=== PATIENT | male | born 1975 ===

== ENCOUNTER 2018-10-20 10:41 | Outpatient (CLI) | payer SELFPAY ==
--- NOTE | 2018-10-20 10:30 | DI.RAD_ITS ---
SYMPTOMS/DIAGNOSIS: PAIN LEFT ANKLE: There is soft tissue swelling. There is spurring at the distal tibia. There are plantar calcaneal spurs seen. No talar dome defect is identified. IMPRESSION: Mild to moderate degenerative changes.
== END 2018-10-20 11:01 ==
PROVIDERS: Visit Provider Orthopaedic Surgery
DX: M25.572 Pain in left ankle and joints of left foot (principal); M19.072 Primary osteoarthritis, left ankle and foot
CPT/HCPCS: 73610

== ENCOUNTER 2018-10-29 16:10 | Emergency (ER) | payer MEDICAID, SELFPAY ==
[2018-10-29 16:15] VITALS: BP 158/85; PULSE 68; RESP 16; TEMP 37.1; O2SAT 98
--- NOTE | 2018-10-29 16:32 | W.ED.GENAD ---
Discharge Plan Disposition Patient Disposition: HOME Condition: Stable Discharge Details Chief Complaint: Abd Prob Clinical Impression: Abdominal pain, left lower quadrant Primary Care Provider: None,None ED Provider: Chris Vail Home Meds and New Rx's Prescriptions: New amoxicillin-pot clavulanate [Augmentin] 875-125 mg tablet 1 tab PO BID Qty: 14 RF: 0 Discharge Instructions Additional Instructions: Based on your exam today there was no indication to require lab work or imaging at this time This pain is likely from muscle strain. The other potential cause of your pain is diverticulitis but given you have not had diarrhea and pain is improving do not start antibiotics. If you start to have diarrhea or worsening pain start the antibiotics follow up with your primary care provider as scheduled If you have severe worsening of pain or new symptoms such as persistent vomit, fevers or testicle pain return to the emergency department Medical Decision Making 42 yo male who denies chronic med problems though doesn't see a medical provider routinely comes in with cc of over a month of left lower abdominal pain. He states he used to drink heavily over 4 years ago and would have pain like this, and then stopped drinking until the holidays where he drank heavily and hasn't had a drink since .He has noted improving left lower abdominal pain and a month ago also had bloody stools which resolved. He states his pain is improving, and tried contacting [facility] and has an appt in early november but was told to come to the ED for an evaluation. On exam he has no tenderness at all on exam, no guarding or rebound and normal rectal exam and negative blood and neg heme. No testicle pain or swelling. could be intermittent inguinal hernia, less likely diverticulitis. His abdominal exam is reassuring for any acute surgical pathology and after discussion with him will defer imaging of the abd/pelvis. He has a f/u appt in November with a new pcp and will return if he worsens. I am going to prescribe abx and advised only to fill if he starts to have worsening pain or diarrhea to cover for diverticulits Differential Diagnosis diverticulitis, hernia, groin strain, muscle strain HPI General Mode of arrival: ambulatory. Date/Time Provider Initiated Documentation: 10/29/18 16:12. Limitations to Documentation: no limitations. Information obtained by: patient. History of Present Illness 42 year old M presents to the emergency department with the chief complaint of abdominal pain, described as mild, with intensity rated at 4. Quality is described as aching, and is localized to the abdomen. Patient reports no radiation. Patient started experiencing this month(s) (1) and it has been constant. No relieving factors improve symptom(s), No exacerbating factors reported . Patient did receive the following treatments prior to arrival, none Related Data Home Medications Medication Instructions Recorded Confirmed amoxicillin-pot clavulanate 1 tab PO BID #14 tab 10/29/18 [Augmentin] Previous Rx's Medication Instructions Recorded amoxicillin-pot clavulanate 1 tab PO BID #14 tab 10/29/18 [Augmentin] Allergies Allergy/AdvReac Type Severity Reaction Status Date / Time No Known Allergies Allergy Verified 10/29/18 16:19 General Stated Complaint: Abd Prob AYANA: 3 Review of Systems Review of Systems All systems reviewed & are unremarkable except as noted in HPI and below Constitutional Denies chills, Denies fever(s) and Denies weakness Cardiovascular Denies chest pain and Denies dyspnea Respiratory Denies cough and Denies dyspnea Gastrointestinal Denies nausea and Denies vomiting Genitourinary Denies dysuria Musculoskeletal Denies joint swelling Integumentary/Breasts Denies rash Neurologic Denies weakness Psychiatric Denies depression Endocrine Denies cold intolerance and Denies heat intolerance [facility] Social History Smoking and Tabacco status: Never Exam Const General: no acute distress Orientation: alert HENCA Head: normal to inspection Ears: external ears normal General nose exam: external nose normal Mouth: moist mucous membranes Eyes General: appearance normal, both eyes and all related structures Neck Neck: normal visual inspection Resp Effort & Inspection: normal respiratory effort and able to speak in complete sentences Cardio Rate: regular rate GI Inspection: normal to inspection and no abdominal wall ecchymosis Skin General skin exam: no rashes or lesions noted Neuro General: alert and oriented x3 Extrem General: normal to inspection Psych Mental Status: mental status grossly normal Course Vital Signs Temperature 37.1 C 10/29/18 16:15 Pulse 68 10/29/18 16:15 Respiratory Rate 16 10/29/18 16:15 Blood Pressure 158/85 H 10/29/18 16:15 Pulse Oximetry 98 10/29/18 16:15 Temperature 37.1 C 10/29/18 16:15 Temperature Source Skin 10/29/18 16:15 Pulse 68 10/29/18 16:15 Respiratory Rate 16 10/29/18 16:15 Respiratory Effort 10/29/18 16:19 Blood Pressure 158/85 H 10/29/18 16:15 Blood Pressure Position Sitting 10/29/18 16:15 Pulse Oximetry 98 10/29/18 16:15 Oxygen Delivery Method Room Air 10/29/18 16:15 Oxygen Flow Rate 0 10/29/18 16:15 Pain Level 4 10/29/18 16:15
== END 2018-10-29 16:38 | disposition home or self-care (01) ==
PROVIDERS: Emergency Provider Emergency Medicine
DX: R10.32 Left lower quadrant pain (principal)
CPT/HCPCS: 99283

== ENCOUNTER 2018-12-23 15:48 | Outpatient (REF) | payer SELFPAY ==
[2018-12-23 20:28] LABS: HCT 44.2 % (40.0-50.0); HGB 15.5 g/dL (13.5-17.5); Mean Corp. HGB Concentration 35.1 g/dL (32.0-36.0); Mean Corpuscular Hemoglobin 30.5 pg (27.0-33.0); Mean Corpuscular Volume 86.8 fL (80-95); Mean Platelet Volume 9.6 fL (8.0-11.0); Platelet Count 197 x1000/uL (130-400); RBC 5.09 m/cumm (4.50-6.00); RBC Distribution Width 13.7 % (11.8-14.1); White Blood Cell Count 6.74 k/cumm (4.4-10.8)
[2018-12-23 20:43] LABS: C-Reactive Protein 0.14 mg/dL (0.0-0.3)
[2018-12-23 21:30] LABS: ESR 7 MM/HR (0-15)
== END 2018-12-23 16:08 ==
LOC: NCHCN 15:48
PROVIDERS: PCP Specialist/Technologist Athletic Trainer; Visit Provider Specialist/Technologist Athletic Trainer
DX: M25.50 Pain in unspecified joint (principal); F41.8 Other specified anxiety disorders; R10.32 Left lower quadrant pain
CPT/HCPCS: 85027; 85652; 84443; 86140

== ENCOUNTER 2019-02-06 11:27 | Emergency (ER) | payer MEDICAID, SELFPAY ==
[2019-02-06 11:32] VITALS: BP 148/90; PULSE 71; RESP 16; TEMP 36.2; O2SAT 98
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
== END 2019-02-06 12:10 | disposition home or self-care (01) ==
PROVIDERS: Emergency Provider Student in an Organized Health Care Education/Training Program; PCP Specialist/Technologist Athletic Trainer
DX: S30.1XXA Contusion of abdominal wall, initial encounter (principal); V17.0XXA Pedal cycle driver injured in collision with fixed or stationary object in nontraffic accident, initial encounter; Z53.29 Procedure and treatment not carried out because of patient's decision for other reasons
CPT/HCPCS: 99282

== ENCOUNTER 2019-06-15 07:15 | Day surgery (SDC) | payer OTHER, MEDICAID, SELFPAY ==
--- NOTE | 2019-06-15 06:48 | HPE_ITS ---
Date of service: 06/15/19 Time of Service: 08:08 Assessment and Plan Assessment and plan (1) Bright red blood per rectum: Status: Acute Assessment and plan: A\\ Most likely due to hemorrhoids. If hemorrhoids found will go ahead with hemorrhoid banding (2) Left lower quadrant abdominal pain: Status: Acute Assessment and plan: P\\ Colonoscopy under sedation Risks, benefits and complications have been reviewed. Complications include but are not limited to bleeding, pain, perforation, missed small lesion/polyp, sore throat, aspiration and adverse reaction to the medications. Questions were entertained and answered to their satisfaction and they wished to proceed. No guarantees were given or implied. History of Present Illness Narrative: Mr. Maya is a 43 year old male with a PMHx significant for alco hol abuse and tobacco abuse. He has stopped smoking and had stopped drinking until about 1 year ago. He just quit drinking again 3 weeks ago. He is here today because of LLQ pain and intermittent rectal bleeding. States that the pain is deep. Sometimes the pain is relieved after he has a bout of bleeding. He has a history of hemorrhoids as well. He denies any N/V, melena, changes in bowel habits, unintentional weight loss. He thinks a maternal uncle had colon cancer but he isn't sure. He has not had a recent CT scan. His HGB/HCT are stable. Mr. Maya unfortunately has started drinking alcohol again. Had 5 Beers a few days ago Review of Systems Constitutional Constitutional: Denies fever(s) Cardiovascular Cardiovascular: Denies chest pain, Denies palpitations and Denies dyspnea Respiratory Respiratory: Denies cough and Denies dyspnea Endocrine Endocrine: Denies palpitations [facility] Medical History Dental abscess (Acute) ETOH abuse (Chronic) History of tobacco abuse (Acute) Marijuana use (Acute) Polyarthralgia (Acute) PTSD (post-traumatic stress disorder) (Acute) Suicidal ideation (Acute) Surgical History History of surgery (Acute) exc. cyst removed Family History Father Skin cancer Cardiomyopathy Maternal Uncle Colon cancer Mother Acid reflux disease with ulcer Sister Breast cancer Social History (Updated 06/15/19 @ 08:10 by Karoline Paez MD) Smoking/Tobacco Use Status: Former Tobacco Use Alcohol Intake: current Alcohol Intake frequency: 3 or more drinks per day Alcohol type: beer Details: Patient relapsed 5 years ago. Stopped again 3 weeks ago,relapsed 5 days ag Drug use: Daily Substance use type: marijuana Details: hx of etoh abuse pt reports today, 06/15/19 that he started drinking again, last time was 2 days ago, 5 beers. Medical marijuana uses edibles & smokes last time 2 days ago. 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 Do you feel safe at home: Yes Do you feel safe in your relationship?: Yes Meds Home Medications and Allergies Home Medications Medication Instructions Recorded Confirmed Type naproxen 500 mg PO BID PRN 02/06/19 06/15/19 History medical marijuana #1 ea 04/30/19 05/07/19 History Allergies Allergy/AdvReac Type Severity Reaction Status Date / Time No Known Allergies Allergy Verified 06/15/19 07:35 Exam Const General: cooperative and comfortable [facility] Head: normocephalic and atraumatic Resp Effort & Inspection: normal respiratory effort Auscultation: clear to auscultation bilaterally Cardio Rate: regular rate Rhythm: regular rhythm
--- NOTE | 2019-06-15 06:50 | W.PM.DSUDISC ---
Discharge Plan Disposition Patient Disposition: HOME Condition: Good Discharge Details Reason For Visit: Bright red blood per rectum and LLQ pain Attending Provider: Karoline Paez Primary Care Provider: James Rachel Home Meds and New Rx's Prescriptions: Continued (DME) medical marijuana Qty: 1 RF: 0 naproxen 500 mg Tablet 500 mg PO BID PRNRF: 0 Discharge Instructions Instructions: Colonoscopy (GEN), Diverticulosis (DC), Hemorrhoids (GEN), Rubber Band Ligation (DC) Additional Instructions: Findings: some mild patchy acute inflammation- I think this is just from the prep but I did biopsies just in case Internal hemorrhoids-I banded the 3 larger ones. You may need to have this done again Follow up: as needed if bleeding continues Try Cortizone cream for the remaining hemorrhoids. A prescription has been sent in Please call if you develop: fevers >101.5 Nausea or Vomiting Abdominal pain that is not transient DAY SURGERY UNIT POST ENDOSCOPY INSTRUCTIONS 1. Because there will be medication in your system for the next 24 hours, you may feel a little sleepy. Your coordination will be affected. Therefore: a. Do not drive or operate dangerous equipment for 24 hours. b. Do not drink alcohol beverages for 24 hours (not even beer). c. Plan to go home and rest for the day. 2. Generally there are no restrictions on your activity after a day or so has gone by, but you may feel a bit fatigued for a few days. 3 After you arrive home you may have a light meal and return to a normal diet as you can tolerate it without feeling sick to your stomach. 4. After surgery, you may feel pain or discomfort. This should be only transient, but if it persists please contact your doctor. 5. If there are any questions regarding the findings of your procedure, please feel free to contact your doctor. 6. If you are unable to contact your doctor with a problem, contact the hospital at [phone]. 7. Continue all your regular medications unless directed otherwise. I understand the above instructions and have no questions. Signature of Patient or Responsible Adult Escort Date/Time Name of Responsible Adult Escort Signature of Nurse Date/Time Activity:: Activity as Tolerated Diet:: High Fiber Discharge Orders Discharge Orders: Discharge Order (Routine); Ordered 06/15/19 Ordered By: Karoline Paez DS: Diagnosis Discharge Diagnosis (1) Internal bleeding hemorrhoids: Status: Acute (2) Diverticulosis: Status: Acute (3) S/P colonoscopy: Status: Acute (4) S/P hemorrhoidectomy: Status: Acute
--- NOTE | 2019-06-15 07:00 | W.COLOREPORT ---
Date of service: 06/15/19 Time of Service: 08:23 Colonoscopy Report Date of procedure: 06/15/19 Pre-op diagnosis general: Intermittent rectal bleeding and LLQ pain Post-op diagnosis procedure note: other (Mild acute inflammation, Bleeding internal hemorrhoids and mild diverticulosis) Procedure: Colonoscopy with bx and internal hemorrhoid banding Surgeon: Karoline Paez Anesthesia proc note operative: other (General/ ASA 2/Blair Hurst, ANDRY) Estimated blood loss (mL): 5 Pathology: other (Biopsies of sigmoid and rectum) Complications: None Disposition: same day Indications: Mr. Maya is a pleasant 43 year old male seen in the office with intermittent bright red blood per rectum as well as some left lower quadrant pain. Risks, benefits and complications of a colonoscopy with possible hemorrhoid banding were reviewed with him and he wished to proceed. No guarantees were given or implied. Prep: Miralax/Dulcolax Procedure Start Time: 08:23 Procedure End Time: 08:49 Retraction Time: 20 minutes Findings: Grade 1 and 2 internal hemorrhoids Mild Diverticulosis Mild patchy acute inflammation Procedure Description: After informed consent was obtained the patient was taken to the procedure room and placed in a left decubitous position. Monitors were applied and a time out was done. The patients name, date of , procedure, allergies to medications and metal in their body was reviewed. The patient was then sedated. Once sedated and comfortable a rectal exam was done. External exam was normal. Internal exam revealed a normal sphincter tone and no palpable masses. The prostate could not be felt. The scope was then introduced and retro-flexed. Grade 1 and 2 internal hemorrhoids were identified. No masses or polyps noted on retro-flexion. The scope was then advanced to the cecum without difficulty. The TI and appendiceal orifice were identified. The prep was adequate. The scope was advanced into the terminal ileum. No inflammation was noted. Random biopsies were done. The scope was then slowly retracted over 20 minutes back into the rectum. There were no polyps noted. There was mild diverticulosis in the sigmoid colon. The scope was removed. Anoscopy was done and 3 internal hemorrhoids were banded. The patient was woken up and taken back to Same day surgery in stable condition. The patient tolerated the procedure well and there were no immediate complications. Follow up: The patient should follow up in 10 years unless they develop changes in bowel habits or other new gastrointestinal complaints. Follow up as needed for continued rectal bleeding as he may need to have more hemorrhoids banded. Will try a high fiber diet and some rectal cortizone.
[2019-06-15 07:38] VITALS: BP 144/86; PULSE 89; RESP 18; TEMP 36.5; O2SAT 97
[2019-06-15] MEDS: Lactated Ringers 1,000 ML 80 ML IV (07:44)
--- NOTE | 2019-06-15 08:34 | BOWEL_PTH ---
PATIENT: Sancho Maya LOC: [facility] U#:[id number] AGE/SX: 43/M ROOM: RE06/15/[address]: Karoline Paez MD : 1975 BED: DIS: 06/15/2019 SPEC #: [id number] RECD: 06/15/19 12:42 STATUS: KEVIN REMayela #: [id number] DANIELE: 06/15/19 08:[address]: Karoline Paez DEPT: Surgical Specimen RECD BY: Nadia Orellana ENTERED: 06/15/19 12:44 SP TYPE: Bowel OTHR DR: James Rachel Tissues: 1 - BIOPSY BOWEL 2 - BIOPSY BOWEL 3 - BIOPSY BOWEL Procedures: GROSS AND MICRO LEVEL 4 Comments: [id number]
[2019-06-15 09:20] VITALS: BP 171/111; PULSE 79; RESP 18; TEMP 36.3; O2SAT 97
[2019-06-15 09:43] VITALS: BP 171/103; PULSE 79; RESP 18; TEMP 36.3; O2SAT 97
== END 2019-06-15 10:03 | disposition home or self-care (01) ==
LOC: SUR 07:15
PROVIDERS: PCP Specialist/Technologist Athletic Trainer; Visit Provider Surgery
PROC: 0DJD8ZZ Inspection of Lower Intestinal Tract, Via Natural or Artificial Opening Endoscopic (ICD-10-PCS; CPT 45378; principal; 2019-06-15 08:30)
DX: K62.5 Hemorrhage of anus and rectum (principal); R10.32 Left lower quadrant pain; K64.0 First degree hemorrhoids; K64.1 Second degree hemorrhoids; K57.30 Diverticulosis of large intestine without perforation or abscess without bleeding
CPT/HCPCS: 45380; 46221; 88305; NC; J2250; J3010

== ENCOUNTER 2020-03-03 14:35 | Outpatient (REF) | payer MEDICAID, SELFPAY ==
[2020-03-03 19:58] LABS: Uric Acid 6.7 mg/dL (3.5-7.2)
== END 2020-03-03 14:55 ==
LOC: NCHCN 14:35
PROVIDERS: PCP Specialist/Technologist Athletic Trainer; Visit Provider Nurse Practitioner Family
DX: M79.671 Pain in right foot
CPT/HCPCS: 84550

== ENCOUNTER 2020-03-14 01:32 | Outpatient (CLI) | payer MEDICAID, SELFPAY ==
--- NOTE | 2020-03-14 | DI.RAD_ITS ---
EXAM: XR TOE RT GREAT CLINICAL HISTORY: FOOT JOINT PAIN, M79.671, RT GREAT TOE PAIN SWELLING X 2 WKS, NO KNOWN INJ. TECHNIQUE: 2D digital imaging was performed. COMPARISON: No exams were available for comparison FINDINGS: BONES: No acute fracture is present. No bony destructive lesion is seen. JOINTS: No dislocation present. SOFT TISSUE: Normal. IMPRESSION: No evidence of acute fracture, dislocation, or subluxation. DATA REPOSITORY: RADIATION DOSE DELIVERED:
== END 2020-03-14 01:52 ==
PROVIDERS: PCP Nurse Practitioner Family; Visit Provider Nurse Practitioner Family
DX: M79.671 Pain in right foot (principal); M79.674 Pain in right toe(s)
CPT/HCPCS: 73660

== ENCOUNTER 2020-03-20 14:38 | Outpatient (REF) | payer MEDICAID, SELFPAY ==
[2020-03-20 19:52] LABS: Hemoglobin A1C 5.4 % (3.8-5.6)
[2020-03-20 19:53] LABS: ALT 39 U/L (16-63); AST 21 U/L (15-37); Albumin 4.1 g/dL (3.4-5.0); Alkaline Phosphatase 77 U/L (46-116); Anion Gap 10.6 mmol/L (3-11); BUN 9 mg/dL (7-18); Bilirubin, Total 0.4 mg/dL (0.2-1.0); CO2 24.4 mmol/L (21.0-32.0); CREATININE 0.99 mg/dL (0.70-1.30); Calcium 9.4 mg/dL (8.5-10.1); Calculated LDL 137 mg/dL (<100); Chloride 105 mmol/L (98-107); Cholesterol 199 mg/dL (<200); Glucose 85 mg/dL (74-106); HDL Cholesterol 34 mg/dL (40-60); Sodium 140 mmol/L (136-145); Total Protein 7.2 g/dL (6.4-8.2); Triglyceride 141 mg/dL (<150)
== END 2020-03-20 14:58 ==
LOC: NCHCN 14:38
PROVIDERS: PCP Nurse Practitioner Family; Visit Provider Nurse Practitioner Family
DX: Z00.00 Encounter for general adult medical examination without abnormal findings (principal); Z13.220 Encounter for screening for lipoid disorders; Z13.228 Encounter for screening for other metabolic disorders; Z13.1 Encounter for screening for diabetes mellitus
CPT/HCPCS: 80053; 80061; 83036

== ENCOUNTER 2020-03-21 15:28 | Outpatient (CLI) | payer OTHER, SELFPAY ==
--- NOTE | 2020-03-21 08:33 | DI.RAD_ITS ---
EXAM: XR ANKLE LT COMPLETE CLINICAL HISTORY: left ankle pain TECHNIQUE: 2D digital imaging was performed. COMPARISON: CR XR ANKLE LT COMPLETE from 10/20/2018 FINDINGS: There is mild spurring of the at the malleoli. There are few tiny bony densities near the malleoli. There is spurring at the distal tibia anterior greater anteriorly and at the anterior talus. There is mild tibiotalar joint space narrowing. No talar dome defect seen. No ankle mortise widening is seen. There is a heel spur. IMPRESSION: Degenerative changes and plantar calcaneal spur.
== END 2020-03-21 15:48 ==
PROVIDERS: PCP Nurse Practitioner Family; Visit Provider Student in an Organized Health Care Education/Training Program
DX: M25.572 Pain in left ankle and joints of left foot (principal); M19.072 Primary osteoarthritis, left ankle and foot; M77.32 Calcaneal spur, left foot
CPT/HCPCS: 73610

== ENCOUNTER 2020-04-12 00:36 | Outpatient (CLI) | payer MEDICAID, SELFPAY ==
--- NOTE | 2020-04-12 07:00 | DI.MRI_ITS ---
EXAM: MR LOWER JOINT LT WO CLINICAL HISTORY: Evaluate anterior ankle posttraumatic mobile mass,ANT ANKLE IMPINGEMENT,. TECHNIQUE: Multiplanar multisequence MRI was performed. COMPARISON: CR XR ANKLE LT COMPLETE from 03/21/2020 FINDINGS: There is no evidence of fracture or bone contusion. A plantar calcaneal spur is seen. There is no evidence of plantar fasciitis. There is fluid seen around the flexor hallucis longus and flexor digi torum tendons but no intrinsic tendon abnormality. The fluid extends along the tendons in the planta r aspect of the foot. There is also fluid seen posterior to the posterior talocalcaneal joint and so me thickening of the posterior talofibular ligament. Small amount of fluid is also seen at the dista l tibial fibular joint. IMPRESSION: Large synovial cysts or a ganglia seen around the flexor digitorum and flexor hallucis longus tendon s. No mass or intrinsic tendon abnormality is seen. DATA REPOSITORY:
== END 2020-04-12 00:56 ==
PROVIDERS: PCP Nurse Practitioner Family; Visit Provider Student in an Organized Health Care Education/Training Program
DX: M25.872 Other specified joint disorders, left ankle and foot
CPT/HCPCS: 73721

== ENCOUNTER 2020-05-07 13:51 | Emergency (ER) | payer MEDICAID, SELFPAY ==
[2020-05-07 13:56] VITALS: BP 143/93; PULSE 128; RESP 20; TEMP 37.3; O2SAT 98
--- NOTE | 2020-05-07 14:00 | DI.RAD_ITS ---
EXAM: XR ANKLE RT COMPLETE CLINICAL HISTORY: Right lateral ankle pain TECHNIQUE: COMPARISON: CR XR ANKLE LT COMPLETE from 03/21/2020 FINDINGS: Three views were obtained. There is marked soft tissue swelling of the ankle. There are moderate to severe degenerative changes involving the joints of the ankle. There are osseous bodies at multiple sites including adjacent to both malleoli which may represent old injuries or accessory ossicles. T here is no evidence of acute fracture or dislocation. IMPRESSION: No evidence of acute fracture or dislocation. RADIATION DOSE DELIVERED: Total DLP
--- NOTE | 2020-05-07 14:01 | W.ED.GENAD ---
Discharge Plan Disposition Patient Disposition: HOME Condition: Stable Discharge Details Chief Complaint: Orthopedic Clinical Impression: Right ankle sprain Primary Care Provider: Marli Stahl ED Provider: Lamar Jon Home Meds and New Rx's Prescriptions: No Action (DME) medical marijuana Qty: 1 RF: 0 hydrocortisone 2.5 % cream with perineal applicator 1 applic NH TID 7 Days Qty: 30 RF: 1 acetaminophen 325 mg Tablet 650 mg PO PRN PRNRF: 0 Discharge Instructions Instructions: Ankle Sprain (ED) Additional Instructions: x-ray shows evidence of degenerative changes and possible old injuries. There is no evidence of acute fracture or dislocation. Wear the splint that you have as needed for comfort take medications as directed. Follow up with primary care provider in 3-5 days. Return to ED sooner if any worsening or concerns. Increase oral fluids. Please take Tylenol or Ibuprofen with food every 4-6 hours as needed for pain and swelling. You may follow-up with orthopedics in 1 to 2 weeks if continued pain. Referrals: Edwin Westfall MD [ [facility] STAFF PHYSICIAN] - Medical Decision Making 44-year-old male presents to the ER with chief complaint of right ankle pain which began on Friday night. Patient has ongoing problems with his left ankle and has been using his right ankle more. He reports lateral malleolus tenderness which is gotten worse radiates into his posterior ankle. Denies any acute injury. No significant deformity, swelling or erythema. He has been seeing Dr. joseph with Ortho for his left ankle for Workmen's Comp. issue and received steroid injections approximately 2 weeks ago to his left ankle. Patient reports difficulty ambulating on right foot due to pain. COMPARISON: CR XR ANKLE LT COMPLETE from 03/21/2020 FINDINGS: Three views were obtained. There is marked soft tissue swelling of the ankle. There are moderate to severe degenerative changes involving the joints of the ankle. There are osseous bodies at multiple sites including adjacent to both malleoli which may represent old injuries or accessory ossicles. There is no evidence of acute fracture or dislocation. IMPRESSION: No evidence of acute fracture or dislocation. Discussed findings of x-ray with patient, verbalized understanding. Patient has presented with his own lace up ankle splint. He also indicates that he has his own walking boot and other Ortho devices at home. Discussed home care verbalized understanding. Referral placed for orthopedic follow-up at patient's request. Placed on care management list. This text was generated using [employer] dictation system, please disregard any oddities of phrase or misspellings. HPI General Mode of arrival: ambulatory (On a ortho rolling scooter). Date/Time Provider Initiated Documentation: 05/07/20 13:56. Limitations to Documentation: no limitations. Information obtained by: patient. HPI Narrative: 44-year-old male presents to the ER with chief complaint of right ankle pain which began on Friday night. Patient has ongoing problems with his left ankle and has been using his right ankle more. He reports lateral malleolus tenderness which is gotten worse radiates into his posterior ankle. Denies any acute injury. No significant deformity, swelling or erythema. He has been seeing Dr. joseph with Ortho for his left ankle for Workmen's Comp. issue and received steroid injections approximately 2 weeks ago to his left ankle. Patient reports difficulty ambulating on right foot due to pain. Related Data Home Medications Medication Instructions Recorded Confirmed medical marijuana #1 ea 04/30/19 05/07/20 hydrocortisone 1 applic NH TID 7 Days #30 gm 06/15/19 05/07/20 acetaminophen 650 mg PO PRN PRN 05/07/20 05/07/20 Previous Rx's Medication Instructions Recorded hydrocortisone 1 applic NH TID 7 Days #30 gm 06/15/19 Allergies Allergy/AdvReac Type Severity Reaction Status Date / Time No Known Allergies Allergy Verified 05/07/20 14:00 General Stated Complaint: Orthopedic AYANA: 4 Review of Systems Narrative: Constitutional: Negative for weight loss, alert and oriented, well groomed, normal body habitus, appears comfortable. HEENT: Denies trauma, headaches, blurry vision, nasal discharge, sore throat, trouble swallowing. Chest: Denies chest pain, palpitations, irregular rhythm, hypertension. Respiratory: Denies Shortness of breath, cough, hemoptysis. GI: Denies abdominal pain, nausea, vomiting, diarrhea, constipation. : Denies dysuria, hematuria, flank pain, rectal bleeding. Neuro: Denies dizziness, blurry vision, weakness, syncope, headache or facial numbness. Hematologic: Denies easy bruising, intolerance to heat or cold, hair loss. [facility] Medical History Degenerative joint disease of left ankle (Acute) Dental abscess (Acute) Diverticulosis (Acute) ETOH abuse (Chronic) History of tobacco abuse (Acute) Impingement of left ankle joint (Acute) Internal bleeding hemorrhoids (Acute) Left ankle injury (Acute 01/19/20) Marijuana use (Acute) Polyarthralgia (Acute) PTSD (post-traumatic stress disorder) (Acute) Suicidal ideation (Acute) Surgical History History of surgery (Acute) exc. cyst removed S/P colonoscopy (Inactive ~06/15/19) S/P hemorrhoidectomy (Resolved ~06/15/19) banding x3 Family History Father Skin cancer Cardiomyopathy Maternal Uncle Colon cancer Mother Acid reflux disease with ulcer Sister Breast cancer Social History Smoking/Tobacco Use Status: Former Tobacco Use Alcohol Intake: current Alcohol Intake frequency: 3 or more drinks per day Alcohol type: beer Details: Patient relapsed 5 years ago. Stopped again 3 weeks ago,relapsed 5 days ag Drug use: Daily Substance use type: marijuana Details: hx of etoh abuse pt reports today, 06/15/19 that he started drinking again, last time was 2 days ago, 5 beers. Medical marijuana uses edibles & smokes last time 2 days ago. 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 Appears stated age. Normal body habitus. Head: Normocephalic, no trauma. Eyes: Pupils PERRLA, Red reflex noted, EOM's intact. Eyelids symmetrical without lesions, discharge, or swelling. ENT: Bilateral TM's WNL, External ear normal to inspection, no mastoid TTP, swelling, or erythema, Nasal turbinates WNL, no nasal discharge. Normal dentition, Posterior pharynx WNL, no exudate. Chest: RRR, Normal S1, S2, distal pulses intact. Resp: Lungs clear to auscultation bilaterally, no wheezes, rales, or rhonchi. Musculoskeletal: Normal gait, does have a bony deformity noted to his lateral malleolus which appears chronic. See diagram below. Skin: No suspicious rashes or lesions. Capillary refill less than 2 sec. Neurologic: Cranial nerves II-XII intact. Alert and oriented x 3. DTR's intact. Hematologic/Lymphatic: No ecchymosis, no lymphadenopathy. Extrem Ankle/foot/toe images: 1. Tenderness to palpation. Course Vital Signs Vital signs: Vital Signs Temperature 37.3 C 05/07/20 13:56 Pulse 128 H 05/07/20 13:56 Respiratory Rate 20 05/07/20 13:56 Blood Pressure 143/93 H 05/07/20 13:56 Pulse Oximetry 98 05/07/20 13:56 Temperature 37.3 C 05/07/20 13:56 Temperature Source Temporal Artery Scan 05/07/20 13:56 Pulse 128 H 05/07/20 13:56 Respiratory Rate 20 05/07/20 13:56 Blood Pressure 143/93 H 05/07/20 13:56 Pulse Oximetry 98 05/07/20 13:56 Oxygen Delivery Method Room Air 05/07/20 13:56 Oxygen Flow Rate 0 05/07/20 13:56 Pain Level 9 05/07/20 13:56
[2020-05-07 14:44] VITALS: PULSE 100; TEMP 36.8
[2020-05-07] MEDS: Ibuprofen 600 MG TAB PO (14:44)
[2020-05-07 15:18] VITALS: BP 120/79; PULSE 90; RESP 20; O2SAT 97
[2020-05-07] MEDS: traMADol 50 MG TAB PO (15:25)
== END 2020-05-07 15:40 | disposition home or self-care (01) ==
PROVIDERS: Emergency Provider Registered Nurse Emergency; PCP Nurse Practitioner Family
DX: S93.401A Sprain of unspecified ligament of right ankle, initial encounter (principal)
CPT/HCPCS: 99283; 73610

== ENCOUNTER 2020-08-01 09:21 | Outpatient (CLI) | payer MEDICAID, SELFPAY ==
--- NOTE | 2020-08-01 | DI.US_ITS ---
EXAM: US LOWER EXTREMITY VENOUS LT CLINICAL HISTORY: LT LEG EDEMA, R60.0, ? DVT TECHNIQUE: Left lower extremity venous ultrasound performed using grayscale, color-flow, and spectra l Doppler analysis. COMPARISON: No exams were available for comparison FINDINGS: The left common femoral demonstrates normal compressibility, augmentation, and color Doppler. There is occlusive hypoechoic thrombus seen extending from the distal left femoral vein through the poplite al vein. It measures almost 20 cm in length. Anterior tibial veins in the lower extremity also show thrombus. There is also thrombus in the superficial veins in the delete the left lower extremity co nsistent with thrombophlebitis. The saphenofemoral junction is unremarkable. There is no evidence o f a Marquez cyst. The soft tissues are unremarkable. IMPRESSION: 1. DVT in the left lower extremity extending from the distal left femoral vein through the popliteal vein. It measures almost 20 cm in length. 2. Superficial thrombophlebitis. DATA REPOSITORY:
== END 2020-08-01 09:41 ==
PROVIDERS: PCP Nurse Practitioner Family; Visit Provider Nurse Practitioner Family
DX: I82.412 Acute embolism and thrombosis of left femoral vein (principal); I82.4Z2 Acute embolism and thrombosis of unspecified deep veins of left distal lower extremity; I80.02 Phlebitis and thrombophlebitis of superficial vessels of left lower extremity
CPT/HCPCS: 93971

== ENCOUNTER 2020-11-10 15:52 | Outpatient (REF) | payer MEDICAID, SELFPAY ==
[2020-11-10 15:02] LABS: HCT 44.7 % (40.0-50.0); HGB 15.1 g/dL (13.5-17.5); MCH 29.4 pg (27.0-33.0); MCHC 33.8 % (32.0-36.0); MCV 87.1 fL (80-95); MPV 9.4 fL (8.0-11.0); Platelet Count 223 10^3/uL (130-400); RBC 5.13 10^6/uL (4.36-5.78); RDW 12.8 % (11.8-14.1); RDW-SD 41.1 fL; WBC 8.49 10^3/uL (4.4-10.8)
[2020-11-10 15:21] LABS: Uric Acid 7.8 mg/dL (3.5-7.2)
== END 2020-11-10 15:53 | disposition home or self-care (01) ==
LOC: NCHCN 15:52
PROVIDERS: PCP Nurse Practitioner Family; Visit Provider Nurse Practitioner Family
DX: M79.671 Pain in right foot (principal); K62.5 Hemorrhage of anus and rectum; I82.492 Acute embolism and thrombosis of other specified deep vein of left lower extremity
CPT/HCPCS: 85027; 84550

== ENCOUNTER 2020-11-13 02:45 | Outpatient (CLI) | payer MEDICAID, SELFPAY ==
--- NOTE | 2020-11-13 | DI.US_ITS ---
EXAM: US LOWER EXTREMITY VENOUS LT CLINICAL HISTORY: F/U ACUTE DVT,I82.409, BEEN ON XALETO TECHNIQUE: Left lower extremity venous ultrasound performed using grayscale, color-flow, and spectra l Doppler analysis. COMPARISON: US US LOWER EXTREMITY VENOUS LT from 08/01/2020 FINDINGS: The left common femoral, femoral and posterior tibialis veins demonstrate normal compressibility, aug mentation, and color Doppler. There is hypoechoic material still present within the distal left femor al vein and the popliteal vein. There has been interval resolution of the thrombus distal to the pop liteal vein. The saphenofemoral junction is unremarkable. There is no evidence of a Marquez cyst. Th e soft tissues are unremarkable. IMPRESSION: Persistent occult material seen in the distal femoral vein and popliteal vein. This may represent re sidual thrombus or post thrombotic change/scarring. It has shown interval decrease in length compare d to the prior examination. DATA REPOSITORY:
== END 2020-11-13 03:05 ==
PROVIDERS: PCP Nurse Practitioner Family; Visit Provider Nurse Practitioner Family
DX: I82.412 Acute embolism and thrombosis of left femoral vein (principal); I82.432 Acute embolism and thrombosis of left popliteal vein
CPT/HCPCS: 93971

== ENCOUNTER 2020-12-22 03:04 | Outpatient (CLI) | payer MEDICAID, SELFPAY ==
[2020-12-22 09:55] LABS: D-Dimer 278 ng/mlFEU (<500)
[2020-12-25 15:37] LABS: Dilute Russell Viper Venom 48.3 secs (31.9-47.0); LA Cascade Summary (See Note); Silica Clotting Time 48.7 secs (30.2-48.4)
[2020-12-25 16:02] LABS: Silica Clot Confirm 42.3 (27.2-43.3); Silica Clot TR Ratio 1.22 (<=1.16)
[2020-12-25 16:03] LABS: Thrombin Time 13.1 secs (10.3-16.9)
[2020-12-25 16:04] LABS: SCT Mixing Control 39.8 secs
[2020-12-25 16:05] LABS: SCT Mixing Study 42.8 secs (30.2-48.4)
[2020-12-25 16:06] LABS: LA Confirm 32.4 secs (27.4-34.7); LA Ratio 1.17 (<=1.16)
[2020-12-25 20:30] LABS: Phospholipid Ab, IgG <9.4 GPL; Phospholipid Ab, IgM 13.1 MPL
[2020-12-26 13:04] LABS: Beta 2 GP1 Ab IgG <9.4 U/mL; Beta 2 GP1 Ab IgM <9.4 U/mL
[2020-12-27 10:16] LABS: Protein S, Functional >150 % (73-156)
== END 2020-12-22 03:05 | disposition home or self-care (01) ==
LOC: LBO 03:04
PROVIDERS: PCP Nurse Practitioner Family; Visit Provider Nurse Practitioner Family
DX: I82.492 Acute embolism and thrombosis of other specified deep vein of left lower extremity
CPT/HCPCS: 36415; 85306; 85670; 85732; 86146; 86147; 87116; 85379; 85613

== ENCOUNTER 2021-03-01 08:43 | Inpatient (IN) | payer MEDICAID, SELFPAY ==
[2021-03-01] VITALS (19 sets, daily range): BP systolic 127–148; BP diastolic 84–105; PULSE 90–150; RESP 17–28; TEMP 36.8–37.5; O2SAT 95–98
--- NOTE | 2021-03-01 08:30 | RT.EKG_ITS ---
APPROVED REPORT Exam: Resting ECG Reason for Exam: CHEST PAIN Patient Location: E HR:90 bpm ECG Measurements Heart Rate 90 AXIS AZ 148 P 30 QRSd 86 QRS 246 QT 359 T 37 QTc 441 Conclusion Sinus rhythm...normal P axis, V-rate 60- 99 Probable left atrial enlargement...P >50mS, <-0.10mV V1 LAD, consider left anterior fascicular block...axis(240,-40), S>R II III aVF Consider left ventricular hypertrophy...(R aVL+S V3) >2.80mV
--- NOTE | 2021-03-01 09:15 | DI.CT_ITS ---
Exam(s) CT CHEST PE CTA EXAM: CT CHEST PE CTA CLINICAL HISTORY: hx of PE, off anticoags for 3 mo. TECHNIQUE: Imaging Protocol: CT angiography of the chest was performed using pulmonary embolus jesus col. Multi planar reconstructions were performed. CONTRAST MATERIAL: Intravenous: Omnipaque 350 Contrast volume: 82 cc Slightly less than optimal bolus timing for opacification of pulmonary arterial tree. COMPARISON: No exams were available for comparison FINDINGS: CHEST: PULMONARY ARTERIES: There are no obvious intraluminal filling defects to suggest acute pulmonary embo li. LUNGS: There are no infiltrates nor evidence of pulmonary infarction.. There are no pleural effusions . MEDIASTINUM: There is no hilar nor mediastinal adenopathy. Visualized thyroid unremarkable. CARDIAC: Heart size is normal. There is no pericardial effusion.Caliber of the thoracic aorta is wit hin normal limits. There is no significant shift of the interventricular septum. PARTIALLY VISUALIZED UPPERMOST ABDOMEN: Hepatic steatosis. No adrenal masses. OSSEOUS: No significant osseous lesions.. IMPRESSION: 1. No evidence of acute pulmonary emboli. No evidence of pulmonary infarction.No pleural effusions. 2. Normal heart size. No pericardial effusion.. No evidence of aortic dissection. 3. Hepatic steatosis noted. RADIATION DOSE DELIVERED: 579.54mGy.cm Total DLP DATA REPOSITORY: All CT scans at this facility are submitted to the National Radiology Data Registry (NRDR) Dose Index Registry (DIR) with the [employer] (ACR). RADIATION OPTIMIZATION: All CT scans at this facility use at least one of these dose optimization te chniques: automated exposure control; mA and/or kV adjustment per patient size (includes targeted exa ms where dose is matched to clinical indication); or iterative reconstruction.
--- NOTE | 2021-03-01 09:23 | ED.GENADUL_ITS ---
Discharge Plan Disposition Patient Disposition: [facility] INPATIENT Condition: Improving Discharge Details Clinical Impression: Alcohol withdrawal, Elevated troponin Admit Date/Time: 03/01/21 11:49 Admit Provider: Sanjeev Luque Attending Provider: Sanjeev Luque Primary Care Provider: Marli Stahl ED Provider: Nadia Hung Discharge Data Discharge Date/Time-TO BE ENTERED AT DEPARTURE: 03/01/21 13:51 Medical Decision Making <TAVO Murillo - Last Filed: 03/01/21 13:28> Patient is alert, oriented, of decisional capacity, quite pleasant in demeanor, initially with a CIWA AR of 11 and a alcohol withdrawal severity score of four, patient was initiated on Ativan secondary to respiratory complaints for safety He felt symptomatically improved after 1 mg of IV Ativan and was not hypoxic Initially concern for pulmonary embolism with elevated troponin of 0.09 with BNP of 1800, CT a chest does not show evidence of pulmonary embolism Case was discussed with Dr. Levin, radiology Patient agreeable to admission at this time, IV Lasix initiated, 20 mg with patient is diuretic na?ve He was given four baby aspirin, MAGGIE will be monitored, Covid swab pending although patient is asymptomatic from the standpoint Mildly hypokalemic but no EKG findings consistent with this, supplemented with 40 mEq of oral potassium Case discussed with Dr. Snell, admitting hospitalist she is willing to admit Patient is agreeable to admission at this time Blood pressure 120/87 at time of admission Differential Diagnosis Differential Diagnosis: CHF, alcohol withdrawal, non-ST elevation NE, pulmonary embolism Medical Records Medical records reviewed: Yes I reviewed the patient's medical records. Lab Data Lab results reviewed: Yes I reviewed the patient's lab results. <Darrian Mccollum MD - Last Filed: 03/09/21 23:13> Patient seen, examined, and discussed with TAVO Hung. EKG was reviewed and interpreted by me: Please see report, sinus rhythm 97 bpm, posterior axis, LVH, no STEMI. I agree with treatment plan as discussed/documented. Patient to be admitted to the hospitalist service for alcohol withdrawal and troponin elevated in the indeterminate range. Lab Data Lab results reviewed: Yes I reviewed the patient's lab results. Labs: Laboratory Tests Range/Units 03/01/21 03/01/21 03/01/21 09:00 09:00 09:19 WBC (4.4-10.8) 10^3/uL 9.14 RBC (4.36-5.78) 10^6/uL 5.94 H Hgb (13.5-17.5) g/dL 18.4 H Hct (40.0-50.0) % 51.4 H MCV (80-95) fL 86.5 MCH (27.0-33.0) pg 31.0 MCHC (32.0-36.0) % 35.8 RDW (11.8-14.1) % 12.5 Plt Count (130-400) 10^3/uL 195 MPV (8.0-11.0) fL 8.8 Immature Gran % 0.5 Neutrophils % 73.2 Lymphocytes % 14.7 Monocytes % 8.2 Eosinophils % 3.0 Basophils % 0.4 Nucleated RBC % % 0 Absolute Neutrophils (1.2-6.7) 10^3/uL 6.69 Absolute Lymphocytes (1.2-3.4) 10^3/uL 1.34 Absolute Monocytes (0.1-0.8) 10^3/uL 0.75 Absolute Eosinophils (0.0-0.7) 10^3/uL 0.27 Absolute Basophils (0.0-0.2) 10^3/uL 0.04 Sodium (136-145) mmol/L 140 Potassium (3.5-5.1) mmol/L 3.3 L Chloride (98-107) mmol/L 100 Carbon Dioxide (21.0-32.0) mmol/L 27.2 Anion Gap (3-11) mmol/L 12.8 H BUN (7-18) mg/dL 13 Creatinine (0.70-1.30) mg/dL 1.2 Estimated GFR/1.73 m2 (mL/min/1.73m2) >= 60.00 Glucose (74-106) mg/dL 122 H Calcium (8.5-10.1) mg/dL 9.1 Magnesium (1.8-2.4) mg/dL 2.0 Total Bilirubin (0.2-1.0) mg/dL 1.2 H AST (15-37) U/L 41 H ALT (16-63) U/L 47 Alkaline Phosphatase (46-116) U/L 89 Troponin I (<0.06) ng/mL 0.09 H* NT-Pro-B Natriuret Pep (<300) pg/mL 1885 H Total Protein (6.4-8.2) g/dL 8.6 H Albumin (3.4-5.0) g/dL 4.1 TSH (0.36-3.74) uIU/mL 2.01 Cancelled Ethyl Alcohol (<3) mg/dL < 3.0 COVID-19 Source Range/Units 03/01/21 03/01/21 03/01/21 09:20 10:47 11:52 WBC (4.4-10.8) 10^3/uL RBC (4.36-5.78) 10^6/uL Hgb (13.5-17.5) g/dL Hct (40.0-50.0) % MCV (80-95) fL MCH (27.0-33.0) pg MCHC (32.0-36.0) % RDW (11.8-14.1) % Plt Count (130-400) 10^3/uL MPV (8.0-11.0) fL Immature Gran % Neutrophils % Lymphocytes % Monocytes % Eosinophils % Basophils % Nucleated RBC % % Absolute Neutrophils (1.2-6.7) 10^3/uL Absolute Lymphocytes (1.2-3.4) 10^3/uL Absolute Monocytes (0.1-0.8) 10^3/uL Absolute Eosinophils (0.0-0.7) 10^3/uL Absolute Basophils (0.0-0.2) 10^3/uL Sodium (136-145) mmol/L Potassium (3.5-5.1) mmol/L Chloride (98-107) mmol/L Carbon Dioxide (21.0-32.0) mmol/L Anion Gap (3-11) mmol/L BUN (7-18) mg/dL Creatinine (0.70-1.30) mg/dL Estimated GFR/1.73 m2 (mL/min/1.73m2) Glucose (74-106) mg/dL Calcium (8.5-10.1) mg/dL Magnesium (1.8-2.4) mg/dL Total Bilirubin (0.2-1.0) mg/dL AST (15-37) U/L ALT (16-63) U/L Alkaline Phosphatase (46-116) U/L Troponin I (<0.06) ng/mL 0.09 H* NT-Pro-B Natriuret Pep (<300) pg/mL Total Protein (6.4-8.2) g/dL Albumin (3.4-5.0) g/dL TSH (0.36-3.74) uIU/mL Ethyl Alcohol (<3) mg/dL Cancelled COVID-19 Source Nasal/nares HPI <TAVO Murillo - Last Filed: 03/01/21 13:28> General Date/Time Provider Initiated Documentation: 03/01/21 08:51 . Limitations to Documentation: no limitations . Information obtained by: patient . HPI Narrative: This 45-year-old gentleman with history of alcohol abuse, pulmonary embolism PTSD presents with report of diaphoresis, chest pain with exertion, and shortness of breath with exertion. Patient does state that he drank heavily this weekend. He is an alcoholic but did not drink for approximately 1 month prior to this binge this weekend reportedly. He stopped drinking abruptly on Friday morning. He has not had a drink since that time. He states that he felt short of breath and has had dyspnea persistently with both alcohol consumption and without and he does not feel the alcohol withdrawal is complicating presentation. He does have a history of pulmonary embolism and states that he has discontinued anticoagulation at the direction of Approximately 3 months ago. He states that his dyspnea is similar to his prior presentation. They attributed his pulmonary embolism to embolization from a prior ankle injury. He denies any calf pain or swelling. He denies exercise, surgeries, long drives. He denies cough or sick contacts. He denies fever chills any actually received his second dose of Covid vaccine on 04 February. He denies any auditory or visual hallucinations. He denies any paresthesias or nausea. He feels very anxious and reports that he has been sweating for the past 3 days. He denies any additional illicit drug use. He does smoke marijuana. He denies tobacco abuse. He denies any early family history of cardiac disease. He denies any personal history of hypertension or hyperlipidemia. Denies any cocaine use. Denies prior history of stress test. Related Data Home Medications Medication Instructions Recorded Confirmed medical marijuana #1 ea 04/30/19 03/09/21 lorazepam 1 mg PO/SL DIRECTED PRN #20 tab 03/04/21 03/09/21 gabapentin 300 mg capsule 300 mg PO TID cap 03/09/21 03/09/21 metoprolol succinate 50 mg 50 mg PO DAILY #30 tab 03/09/21 03/09/21 tablet,extended release 24 hr Previous Rx's Medication Instructions Recorded lorazepam 1 mg PO/SL DIRECTED PRN #20 tab 03/04/21 metoprolol succinate 50 mg 50 mg PO DAILY #30 tab 03/09/21 tablet,extended release 24 hr Allergies Allergy/AdvReac Type Severity Reaction Status Date / Time No Known Allergies Allergy Verified 03/09/21 10:46 General Stated Complaint: Chest Pain AYANA: 2 Review of Systems <TAVO Murillo - Last Filed: 03/01/21 13:28> Narrative: Review of systems obtained x7 aside from where indicated in HPI PFSH <TAVO Murillo - Last Filed: 03/01/21 13:28> Medical History (Updated 03/09/21 @ 10:59 by Lore Yoo MD) Degenerative joint disease of left ankle Dental abscess Diverticulosis ETOH abuse History of tobacco abuse Hypertrophic cardiomyopathy Impingement of left ankle joint Internal bleeding hemorrhoids Left ankle injury (01/19/20) Marijuana use Other chest pain Polyarthralgia PTSD (post-traumatic stress disorder) Suicidal ideation Surgical History History of surgery exc. cyst removed S/P colonoscopy (~06/15/19) S/P hemorrhoidectomy (~06/15/19) banding x3 Family History Father Skin cancer Cardiomyopathy Maternal Uncle Colon cancer Mother Acid reflux disease with ulcer Sister Breast cancer Social History (Updated 03/09/21 @ 10:50 by Kaitlynn Torres RN) Smoking/Tobacco Use Status: Former Tobacco Use Smoking risk assessment performed?: Yes Alcohol Intake: current Alcohol Intake frequency: 3 or more drinks per day Alcohol type: beer Details: Patient relapsed 5 years ago. Stopped again 3 weeks ago,relapsed 5 days ag Drug use: Rarely Substance use type: marijuana Details: hx of etoh abuse pt reports today, 06/15/19 that he started drinking again, last time was 2 days ago, 5 beers. Medical marijuana uses edibles & smokes last time 2 days ago. Uses Marijuana for pain, anxiety. 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 Do you feel safe at home: Yes Do you feel safe in your relationship?: Yes Exam <TAVO Murillo Last Filed: 03/01/21 13:28> Const Orientation: alert and oriented x3 HENMT Other: diaphoretic, forehead Eyes Pupils: PERRL Chest Other: tachypnea Resp Effort & Inspection: tachypneic Auscultation: clear to auscultation bilaterally Cardio Heart Sounds: no murmurs GI Inspection: normal to inspection Skin Other: diaphoresis Neuro General: patient alert and patient oriented x3 Extrem Other: No calf tenderness or swelling appreciated Distal pulsdes intact Course <TAVO Murillo Last Filed: 03/01/21 13:28> Vital Signs Vital signs: Vital Signs Temperature 36.9 C 03/01/21 08:58 Pulse 107 H 03/01/21 08:58 Respiratory Rate 21 03/01/21 08:58 Blood Pressure 148/101 H 03/01/21 08:58 Pulse Oximetry 96 03/01/21 08:58 Temperature 36.9 C 03/01/21 08:58 Temperature Source Temporal Artery Scan 03/01/21 08:58 Pulse 107 H 03/01/21 08:58 Respiratory Rate 21 03/01/21 09:03 Respiratory Effort 03/01/21 09:03 Respiratory Depth Deep 03/01/21 09:03 Respiratory Pattern Normal 03/01/21 09:03 Blood Pressure 148/101 H 03/01/21 08:58 Blood Pressure Position Supine 03/01/21 08:58 Pulse Oximetry 96 03/01/21 08:58 Oxygen Delivery Method Room Air 03/01/21 08:58 Oxygen Flow Rate 0 03/01/21 08:58 Pain Level 5 03/01/21 09:03 Critical Care Time <TAVO Murillo Last Filed: 03/01/21 13:28> Critical Care Time Critical Care Time: Yes Total Critical Care Time: 35 Attestation: Alcohol withdrawal, Ativan utilized to manage symptoms, CHF, IV Lasix and telemetry monitoring with elevated troponin, likely secondary to strain from CHF, admission to the hospital
[2021-03-01] MEDS: LORazepam 2 MG/ML VIAL 1 MG IVP ×2 (09:29→12:00)
[2021-03-01] MEDS: Aspirin 81 MG CHEW 324 MG CH (09:29)
[2021-03-01] MEDS: Normal Saline 500 ML IV (09:29)
[2021-03-01 09:30] LABS: Abs Immature Grans 0.05 10^3/uL (0.0-0.06); Absolute Basophil Count 0.04 10^3/uL (0.0-0.2); Absolute Eosinophil Count 0.27 10^3/uL (0.0-0.7); Absolute Lymphocyte Count 1.34 10^3/uL (1.2-3.4); Absolute Monocyte Count 0.75 10^3/uL (0.1-0.8); Absolute Neutrophil Count 6.69 10^3/uL (1.2-6.7); Basophils % 0.4; HCT 51.4 % (40.0-50.0); HGB 18.4 g/dL (13.5-17.5); Immature Grans % 0.5; Lymphocytes % 14.7; MCHC 35.8 % (32.0-36.0); MCV 86.5 fL (80-95); MPV 8.8 fL (8.0-11.0); Monocytes % 8.2; Neutrophils % 73.2; Nucleated RBC 0 %; Platelet Count 195 10^3/uL (130-400); RBC 5.94 10^6/uL (4.36-5.78); RDW 12.5 % (11.8-14.1); RDW-SD 39.3 fL; WBC 9.14 10^3/uL (4.4-10.8)
[2021-03-01 09:53] LABS: ALT 47 U/L (16-63); AST 41 U/L (15-37); Albumin 4.1 g/dL (3.4-5.0); Alkaline Phosphatase 89 U/L (46-116); Anion Gap 12.8 mmol/L (3-11); BUN 13 mg/dL (7-18); Bilirubin, Total 1.2 mg/dL (0.2-1.0); CO2 27.2 mmol/L (21.0-32.0); CREATININE 1.2 mg/dL (0.70-1.30); Calcium 9.1 mg/dL (8.5-10.1); Chloride 100 mmol/L (98-107); Glucose 122 mg/dL (74-106); NT-proBNP 1885 pg/mL (<300); Potassium 3.3 mmol/L (3.5-5.1); Sodium 140 mmol/L (136-145); TSH 2.01 uIU/mL (0.36-3.74); Total Protein 8.6 g/dL (6.4-8.2)
[2021-03-01 09:56] LABS: Troponin I 0.09 ng/mL (<0.06)
[2021-03-01 10:02] LABS: ETHANOL BLOOD < 3.0 mg/dL (<3)
[2021-03-01] MEDS: Omnipaque 350 MG/ML 100 ML BTL IJ (10:28)
[2021-03-01] MEDS: Normal Saline - Diluent 50 ML VIAL IV (10:29)
--- NOTE | 2021-03-01 11:00 | RT.EKG_ITS ---
APPROVED REPORT Exam: Resting ECG Reason for Exam: chest pain Patient Location: E HR:97 bpm ECG Measurements Heart Rate 97 AXIS MT 153 P 0 QRSd 84 QRS 238 QT 358 T 3 QTc 455 Conclusion Sinus rhythm...normal P axis, V-rate 60- 99 Probable left atrial enlargement...P >50mS, <-0.10mV V1 Markedly posterior QRS axis...late V-lead transition Consider left ventricular hypertrophy...(R aVL+S V3) >2.80mV
[2021-03-01 11:15] LABS: Troponin I 0.09 ng/mL (<0.06)
[2021-03-01] MEDS: Potassium Chloride 20 MEQ TABCR 40 MEQ PO (12:00)
--- NOTE | 2021-03-01 12:01 | W.PM.HP.N ---
Date of service: 03/01/21 Time of Service: 12:01 Assessment and Plan Assessment and plan (1) Elevated troponin: Status: Acute Assessment and plan: admitted to med/surg on telemetry received asa, no acute st segment changes cycle troponin with reported chest pain and heart failure consider NSTEMI will need outpatient stress test as not available on this admission. (2) ETOH abuse: Status: Chronic Assessment and plan: hasnt' had a drink in 4 days per his report so should not have serious withdrawal moving forward can have prn po ativan will monitor ciwa and adjust ativan dosing as needed, cessation discussed (3) Heart failure: Status: Acute Assessment and plan: recieved lasix in the ED strict I&O, daily weights echo pending but initial report with hypertrophic cardiomyopathy without obstruction. start beta fabby outpatient cardiology referral. outpatient stress testing (4) Discharge planning issues: Status: Acute Assessment and plan: anticipate discharge to home with no services discussed with DR Luque History of Present Illness History of Present Illness Chief Complaint: chest pain Narrative: patient presents to the ED with palpitations, heart pain and shortness of breath worsened with activity. no fevers or cough. no similar history. alcoholic in remission who drank heavily over the weekend, no alcohol in past 4 days. denies edema. Review of Systems All systems reviewed & are unremarkable except as noted in HPI and below Constitutional Constitutional: Denies fever(s) ENT Ears, Nose, Mouth, and Throat: Denies vertigo and Denies dizziness Cardiovascular Cardiovascular: Denies edema, Denies leg edema, Denies lightheadedness, Reports palpitations, Reports dyspnea and Reports dyspnea on exertion Respiratory Respiratory: Reports dyspnea, Reports dyspnea on exertion and Denies wheezing Gastrointestinal Gastrointestinal: Denies nausea Musculoskeletal Musculoskeletal: Denies joint swelling Neurologic Neurologic: Denies vertigo and Denies dizziness Endocrine Endocrine: Reports palpitations Allergic/Immunologic Allergic/Immunologic: Denies wheezing [facility] Medical History (Updated 03/01/21 @ 15:04 by Ann Mead NP) Degenerative joint disease of left ankle Dental abscess Diverticulosis ETOH abuse History of tobacco abuse Impingement of left ankle joint Internal bleeding hemorrhoids Left ankle injury (01/19/20) Marijuana use Polyarthralgia PTSD (post-traumatic stress disorder) Suicidal ideation Surgical History History of surgery exc. cyst removed S/P colonoscopy (~06/15/19) S/P hemorrhoidectomy (~06/15/19) banding x3 Family History Father Skin cancer Cardiomyopathy Maternal Uncle Colon cancer Mother Acid reflux disease with ulcer Sister Breast cancer Social History Smoking/Tobacco Use Status: Former Tobacco Use Smoking risk assessment performed?: Yes Alcohol Intake: current Alcohol Intake frequency: 3 or more drinks per day Alcohol type: beer Details: Patient relapsed 5 years ago. Stopped again 3 weeks ago,relapsed 5 days ag Drug use: Rarely Substance use type: marijuana Details: hx of etoh abuse pt reports today, 06/15/19 that he started drinking again, last time was 2 days ago, 5 beers. Medical marijuana uses edibles & smokes last time 2 days ago. 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 Current gender identity: male Do you feel safe at home: Yes Do you feel safe in your relationship?: Yes Meds Allergies and Home Medications Allergies Allergy/AdvReac Type Severity Reaction Status Date / Time No Known Allergies Allergy Verified 06/20/20 13:11 Home Medications Medication Instructions Recorded Confirmed Type medical marijuana #1 ea 04/30/19 06/20/20 History Exam Const Orientation: alert and oriented x3 Eyes Pupils: PERRL Resp Auscultation: clear to auscultation bilaterally Cardio Rate: regular rate Rhythm: regular rhythm GI Inspection: normal to inspection Neuro General: patient alert and patient oriented x3 Results Labs Result diagrams: 03/01/21 09:00 03/01/21 09:00 Labs: Laboratory Results - last 24 hr 03/01/21 03/01/21 03/01/21 09:00 09:00 09:19 WBC 9.14 RBC 5.94 H Hgb 18.4 H Hct 51.4 H MCV 86.5 MCH 31.0 MCHC 35.8 RDW 12.5 Plt Count 195 MPV 8.8 Immature Gran % 0.5 Neutrophils % 73.2 Lymphocytes % 14.7 Monocytes % 8.2 Eosinophils % 3.0 Basophils % 0.4 Nucleated RBC % 0 Absolute Neutrophils 6.69 Absolute Lymphocytes 1.34 Absolute Monocytes 0.75 Absolute Eosinophils 0.27 Absolute Basophils 0.04 Sodium 140 Potassium 3.3 L Chloride 100 Carbon Dioxide 27.2 Anion Gap 12.8 H BUN 13 Creatinine 1.2 Estimated GFR/1.73 m2 >= 60.00 Glucose 122 H Calcium 9.1 Magnesium 2.0 Total Bilirubin 1.2 H AST 41 H ALT 47 Alkaline Phosphatase 89 Troponin I 0.09 H* NT-Pro-B Natriuret Pep 1885 H Total Protein 8.6 H Albumin 4.1 TSH 2.01 Cancelled Ethyl Alcohol < 3.0 03/01/21 03/01/21 09:20 10:47 WBC RBC Hgb Hct MCV MCH MCHC RDW Plt Count MPV Immature Gran % Neutrophils % Lymphocytes % Monocytes % Eosinophils % Basophils % Nucleated RBC % Absolute Neutrophils Absolute Lymphocytes Absolute Monocytes Absolute Eosinophils Absolute Basophils Sodium Potassium Chloride Carbon Dioxide Anion Gap BUN Creatinine Estimated GFR/1.73 m2 Glucose Calcium Magnesium Total Bilirubin AST ALT Alkaline Phosphatase Troponin I 0.09 H* NT-Pro-B Natriuret Pep Total Protein Albumin TSH Ethyl Alcohol Cancelled Last Vital Signs Temp 36.9 C 03/01/21 08:58 Pulse 101 H 03/01/21 10:08 Resp 19 03/01/21 11:00 BP 139/101 H 03/01/21 10:08 Pulse Ox 96 03/01/21 11:00
[2021-03-01 12:05] LABS: Source Nasal/Nares
[2021-03-01] MEDS: Thiamine 100 MG TAB PO (12:18)
--- NOTE | 2021-03-01 14:50 | DI.US_ITS ---
APPROVED REPORT EXAM: Comprehensive 2D, Doppler, and color-flow Echocardiogram Patient Location: In-Patient Room/Bed: [facility] Corporate Analyst: Radha Abad RDCS (AE) Indications: CHF Other Information Study Quality: Adequate Conclusion Left ventricular chamber size is normal. There is asymmetric septal hypertrophy, measuring 2.2 cm, p osterior wall 1.2 cm. Left ventricular systolic function is normal. Estimated ejection fraction is 55 to 60%. There are no segmental wall motion abnormalities Normal right ventricular size and systolic function Both atria are normal in size There is no significant valvular disease Mildly dilated ascending aorta measuring 3.53 cm Wall motion Left Ventricle Left ventricular cavity is small. Asymmetric septal thickening is noted. Severe basal septal hypertro phy is present. . There is no ventricular septal defect visualized. LVEF is 55-60%. Right Ventricle The right ventricle is normal size. The right ventricular systolic function is normal. Atria The left atrium size is normal. The right atrium size is normal. The interatrial septum is intact wit h no evidence for an atrial septal defect. Aortic Valve The aortic valve is normal in structure. Aortic valve is trileaflet. There is no aortic valvular sten osis. No aortic regurgitation is present. Mitral Valve Mild mitral annular calcification. No evidence of mitral valve stenosis. Trace mitral regurgitation. Tricuspid Valve The tricuspid valve is normal in structure. There is no tricuspid valve stenosis. Trace tricuspid reg urgitation. Unable to assess PA pressure. Pulmonic Valve The pulmonary valve is normal in structure. There is no pulmonic valvular stenosis. There is no pulmo jeremy valvular regurgitation. Great Vessels The aortic root is normal in size. The ascending aorta is mildly dilated. Aortic arch is normal in ca liber. The IVC collapses <50% with inspiration. Pericardium There is no pericardial effusion. 2D Dimensions IVSD d PLAX 2.28 cm M: 0.6-1.2 LV Vol A2C d MOD 94.6 mL LVPW d PLAX 1.29 cm M: 0.6 - 1.2 LV Vol A4C d MOD 117.2 mL LVID d PLAX 3.27 cm M: 4.2 - 5.8 LA vol/ BSA A2C s A-L 17.6 mL/m2 LVDs 2.45 cm M: 2.5 - 4.0 LA vol/ BSA A4C s A-L 21.9 mL/m2 Ao Root d 3.40 cm M: 3.1 - 3.7 LA Vol/ BSA Biplane s A-L 19.7 mL/m2 RA Area A4C 15.51 cm2 LA Area A4C s MOD 18.25 cm2 RA Vol/ BSA A4C s A-L 17.9 mL/m2 LA Area A2C s MOD 16.47 cm2 Ao Asc Diam d 3.53 cm M: 2.6 - 3.4 LV EF A4C MOD 45.0 % LV EF Teichholz 49.7 % LV EF A2C MOD 46.4 % LVEF (Woo's) 47.06 % M: 52 - 72 LV EF Biplane MOD 47.1 % LV Volume 76.44 mL M: 62 - 150 SV 50.97 mL LV Volume Index 31.45 mL/m2 M: 34 - 74 SV Index 20.98 mL/m2 LV Vol Biplane MOD 108.3 mL FS 24.40 % M-Mode TAPSE 2.22 cm (M/F) >1.7 LV Diastology MV E' medial 0.044 (>0.07 m/s) E/A Ratio 0.7 LV E/e MED 12.30 (<14) MV E Vmax 0.54 (0.4-1.3 m/s) MV E' lateral 0.093 (>0.1 m/s) MV A Vmax 0.80 (0.4-1.3 m/s) LV E/e LAT 5.80 (<14) MV E/A Ratio 0.66 MV E/E' medial 12.33 MV E/E' lateral 5.84 Aortic Valve LVOT Area 4.44 cm2 AoV Area Vmax 4.25 cm2 LVOT Vmax 1.32 m/s AoV Area/ BSA (Vmax) 1.75 cm2/m2 LVOT Mean Dajuan. 0.96 m/s SALVADOR Mean Dajuan. 4.02 cm2 LVOT Peak Grad 6.9 mmHg SALVADOR Mean Dajuan. Index 1.65 cm2/m2 LVOT Mean Grad 4.2 mmHg LVOT VTI 0.227 m LVOT Diam s 2.35 cm AoV Vmax 1.38 m/s Velocity Ratio 0.95 AoV Mean Dajuan. 1.06 m/s AoV Peak Grad 7.6 mmHg LVOT SV 100.84 mL AoV Mean Grad 4.8 mmHg AoV VTI 0.187 m AoV Area VTI 5.38 cm2 AoV Area/ BSA (VTI) 2.22 cm/m2 Mitral Valve MV DT 342 (160-240 msec) MV PHT 99 msec MV Area PHT 2.22 cm2 MV VTI 0.176 m MV Area VTI 5.73 (4.0-6.0 cm2) Pulmonary Valve PV Vmax 1.19 (0.5-1.5 m/s) RVOT Peak Gr. 4.69 mmHg PV Peak Grad 5.6 mmHg RVOT Mean Gr. 2.45 mmHg PV Mean Grad 3.0 mmHg RVOT VTI 0.167 m PV VTI 0.187 m RVOT Vmax 1.08 m/s
[2021-03-01 15:22] LABS: COVID-19 PCR Negative (Negative)
[2021-03-01 15:46] LABS: Troponin I 0.08 ng/mL (<0.06)
[2021-03-01] MEDS: LORazepam 1 MG TAB PO ×2 (15:55→22:31)
[2021-03-01] MEDS: Metoprolol 25 MG TAB PO (18:15)
--- NOTE | 2021-03-01 18:31 | INITIAL_ITS ---
- If Service Date Differs Date of service: 03/01/21 Time of Service: 18:31 Care Management Initial Assess REASON FOR HOSPITALIZATION:: CHF. PAST MEDICAL HISTORY/PAST SURGICAL HISTORY:: Medical History: Degenerative joint disease of left ankle, Dental abscess,. Diverticulosis, ETOH abuse, History of tobacco abuse, Impingement of left ankle joint, Internal bleeding hemorrhoids, Left ankle injury (01/19/20),. Marijuana use, Polyarthralgia, PTSD (post-traumatic stress disorder), and. Suicidal ideation. Surgical History: History of surgery - exc. cyst removed, S/P colonoscopy (~06/15/19), and S/P hemorrhoidectomy (~06/15/19) - banding x3. PREVIOUS FUNCTIONAL STATUS/SOCIAL/FAMILY SUPPORTS:: Rivas is a 45 year old male who lives alone in an apartment in [place]. For the past year, Rivas has been out of work due to medical problems. 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 Rivas enjoys photography, riding bikes, skiing, and snowboarding, but he shares that he injured his ankle in January of 2020, so he has not been able to do many of the activities he enjoys. Rivas's parents live locally and are a source of support for him. Rivas is independent at baseline. CURRENT FUNCTIONAL STATUS:: Rivas is sitting up in bed when CM comes to meet with him. He is pleasant and easily engages in conversation. He shares this past year has been difficult due to Covid and several health problems. CM will continue to follow. ADVANCE DIRECTIVES:: None on file; CM provides an Advance Directives form for Rivas to complete at his leisure. Has patient been provided with info about the portal/API?: Yes Did the patient sign up for the portal?: No CODE STATUS:: Full Code INSURANCE COVERAGE / FINANCIAL ISSUES:: Medicaid. CURRENT HOME/COMMUNITY SERVICES/EQUIPMENT:: No in-home or community services. Rivas owns crutches, a walker, braces, and a scooter. PRIMARY CARE PHYSICIAN:: Marli Stahl. POTENTIAL DISCHARGE NEEDS:: Follow up appointments with PCP, cardiology, o utpatient stress test, and discharge plan of care. PATIENT/FAMILY EDUCATION NEEDS:: Discharge instructions, limitations, and follow up plan of care, including Ask Me Three and self management. ANTICIPATED BARRIERS TO DISCHARGE:: None. TRANSPORTATION:: VIa private vehicle with family. PLAN:: Anticipate Rivas will be discharged home with no services when medically cleared by provider. 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 Rivas will additionally have a stress test on an outpatient basis. He will be driven home by family via private vehicle when ready. CM will continue to support Rivas and discharge planning needs.
[2021-03-02] VITALS (13 sets, daily range): BP systolic 123–149; BP diastolic 80–98; PULSE 80–127; RESP 16–19; TEMP 36.1–37.3; O2SAT 94–99
[2021-03-02 07:03] LABS: Abs Immature Grans 0.08 10^3/uL (0.0-0.06); Absolute Basophil Count 0.08 10^3/uL (0.0-0.2); Absolute Eosinophil Count 0.41 10^3/uL (0.0-0.7); Absolute Lymphocyte Count 3.04 10^3/uL (1.2-3.4); Absolute Monocyte Count 0.91 10^3/uL (0.1-0.8); Absolute Neutrophil Count 4.24 10^3/uL (1.2-6.7); Basophils % 0.9; Eosinophils % 4.7; HCT 47.4 % (40.0-50.0); HGB 16.7 g/dL (13.5-17.5); Immature Grans % 0.9; Lymphocytes % 34.7; MCH 30.8 pg (27.0-33.0); MCHC 35.2 % (32.0-36.0); MCV 87.3 fL (80-95); MPV 8.9 fL (8.0-11.0); Monocytes % 10.4; Neutrophils % 48.4; Nucleated RBC 0 %; Platelet Count 153 10^3/uL (130-400); RBC 5.43 10^6/uL (4.36-5.78); RDW 12.4 % (11.8-14.1); RDW-SD 39.5 fL; WBC 8.76 10^3/uL (4.4-10.8)
[2021-03-02 07:17] LABS: Anion Gap 11.3 mmol/L (3-11); BUN 16 mg/dL (7-18); CO2 26.7 mmol/L (21.0-32.0); CREATININE 1.1 mg/dL (0.70-1.30); Calcium 8.9 mg/dL (8.5-10.1); Chloride 102 mmol/L (98-107); Glucose 92 mg/dL (74-106); Potassium 3.3 mmol/L (3.5-5.1); Sodium 140 mmol/L (136-145)
[2021-03-02 07:24] LABS: Troponin I 0.08 ng/mL (<0.06)
[2021-03-02] MEDS: Metoprolol 25 MG TAB PO ×2 (07:52→14:13)
[2021-03-02] MEDS: Thiamine 100 MG TAB PO (07:52)
[2021-03-02] MEDS: LORazepam 1 MG TAB PO ×2 (08:30→14:48)
[2021-03-02] MEDS: Normal Saline Flush 10 ML SYR IVP ×2 (08:58→21:50)
[2021-03-02] MEDS: Potassium Chloride 20 MEQ TABCR 40 MEQ PO ×2 (08:58→14:13)
[2021-03-02] MEDS: Furosemide 40 MG/4 ML VIAL IVP (08:58)
--- NOTE | 2021-03-02 12:39 | W.PM.PROGNOT ---
Date of Service Date of service: 03/02/21 Time of Service: 12:40 Assessment and Plan Assessment and plan (1) Elevated troponin: Start date: 03/02/21 Start time: 12:55 Status: Acute Assessment and plan: admitted to med/surg on telemetry received asa, no acute st segment changes cycle troponin, continue to be elevated but 0.09 to 0.08 with reported chest pain and heart failure consider NSTEMI Cardiology consult will need outpatient stress test as not available on this admission. Titrate BB Echo with cardiomyopathy (2) Heart failure: Start date: 03/02/21 Start time: 12:57 Status: Acute Assessment and plan: recieved lasix in the ED strict I&O, daily weights echo pending but initial report with hypertrophic cardiomyopathy without obstruction. beta fabby was initiated, he still has elevated HR. cardiology consult as inpatient as he still has elevated HR SOB and CP with ambulation and elevated trops. Qualifiers: Heart failure type: systolic Heart failure chronicity: acute on chronic Qualified Code(s): I50.23 - Acute on chronic systolic (congestive) heart failure (3) ETOH abuse: Start date: 03/02/21 Start time: 12:57 Status: Chronic Assessment and plan: No alcohol since Friday. can have prn po ativan will monitor ciwa and adjust ativan dosing as needed, cessation discussed (4) Discharge planning issues: Start date: 03/02/21 Start time: 12:58 Status: Acute Assessment and plan: anticipate discharge to home with no services discussed with DR Luque Subjective Subjective Patient reports: no new complaints Interval history since last seen: Patient states SOB with ambulation nothing new. Last drink was on Friday. He did have a short event of 139 HR for brief second at 0648 this am. Echo revealing cardiomypathy, patient states, his father and uncles have this and an uncle dropped from this about 10 years ago. Increased BB, consult cardiology. Exam Const General: cooperative, comfortable and ill appearing chronically Orientation: alert, awake and oriented x3 HENMT Head: normal to inspection and atraumatic Mouth: moist mucous membranes Eyes Pupils: PERRL Resp Effort & Inspection: normal respiratory effort and able to speak in complete sentences Auscultation: clear to auscultation bilaterally Cardio Jugular venous pressure: no JVD Rate: regular rate Rhythm: regular rhythm GI Inspection: normal to inspection Palpation: soft and no hepatosplenomegaly Auscultation: normal bowel sounds Skin General skin exam: no rashes or lesions noted Wounds: no wounds Neuro General: patient alert, patient awake and patient oriented x3 Cognition: normal cognition Speech: speech normal Extrem General: normal to inspection, full ROM and no clubbing, cyanosis or edema Psych Appearance: grossly normal Thought Process: normal Objective Last Vital Signs Temp 36.1 C L 03/02/21 07:28 Pulse 127 H 03/02/21 07:42 Resp 19 03/02/21 07:28 BP 137/94 H 03/02/21 07:28 Pulse Ox 97 03/02/21 07:28 Laboratory Results - last 24 hr 03/01/21 03/01/21 03/02/21 11:52 15:10 06:10 WBC RBC Hgb Hct MCV MCH MCHC RDW Plt Count MPV Immature Gran % Neutrophils % Lymphocytes % Monocytes % Eosinophils % Basophils % Nucleated RBC % Absolute Neutrophils Absolute Lymphocytes Absolute Monocytes Absolute Eosinophils Absolute Basophils Sodium 140 Potassium 3.3 L Chloride 102 Carbon Dioxide 26.7 Anion Gap 11.3 H BUN 16 Creatinine 1.1 Estimated GFR/1.73 m2 >= 60.00 Glucose 92 Calcium 8.9 Troponin I 0.08 H* 0.08 H* SARS-CoV-2 (PCR) Negative 03/02/21 06:10 WBC 8.76 RBC 5.43 Hgb 16.7 Hct 47.4 MCV 87.3 MCH 30.8 MCHC 35.2 RDW 12.4 Plt Count 153 MPV 8.9 Immature Gran % 0.9 Neutrophils % 48.4 Lymphocytes % 34.7 Monocytes % 10.4 Eosinophils % 4.7 Basophils % 0.9 Nucleated RBC % 0 Absolute Neutrophils 4.24 Absolute Lymphocytes 3.04 Absolute Monocytes 0.91 H Absolute Eosinophils 0.41 Absolute Basophils 0.08 Sodium Potassium Chloride Carbon Dioxide Anion Gap BUN Creatinine Estimated GFR/1.73 m2 Glucose Calcium Troponin I SARS-CoV-2 (PCR)
--- NOTE | 2021-03-02 12:45 | RT.EKG_ITS ---
APPROVED REPORT Exam: Resting ECG Reason for Exam: KAREEN TAVARES Patient Location: I HR:78 bpm ECG Measurements Heart Rate 78 AXIS SC 160 P 14 QRSd 93 QRS 244 QT 420 T 23 QTc 471 Conclusion Sinus rhythm...normal P axis, V-rate 60- 99 Atrial premature complex...SV complex w/ short R-R interval Inferior infarct, old...Q >35mS, II III aVF
[2021-03-02] MEDS: Metoprolol 5 MG/5 ML VIAL 2.5 MG IVP (13:42)
[2021-03-02] MEDS: Enoxaparin 40 MG/0.4 ML SYR SC (14:13)
--- NOTE | 2021-03-02 14:30 | W.CARDCONSUL ---
Date of service: 03/02/21 Time of Service: 14:30 Assessment and Plan Assessment and plan (1) Alcohol withdrawal: Status: Acute (2) Elevated troponin: Status: Acute (3) Hypertrophic cardiomyopathy: Status: Acute Assessment and plan: The majority of the patient's presentation is related to his alcohol abuse and subsequent withdrawal. He is hypertensive and tachycardic. Beta-blockers have been initiated but are not yet effective, likely due to inadequate dosing. I would suggest increasing his metoprolol to a minimum of Lopressor 50 mg every 6 hours with the intention of transitioning to once daily metoprolol succinate. His EKG shows no acute changes. Troponin is mildly elevated, nonspecific and not suggestive of acute coronary syndrome Potassium should be repleted. Magnesium should be checked if not already done Once the patient has stabilized he could be discharged to outpatient follow-up . I recommended that he be seen in the cardiology clinic as an outpatient for further management and any appropriate testing as his course unfolds. I do not see any indication acutely for an ischemic evaluation Continued use of Ativan or possibly Librium may also be helpful, as it will reduce his adrenergic drive which is contributing to tachycardia and hypertension History of Present Illness History of Present Illness Chief Complaint: Alcohol withdrawal, hypertrophic cardiomyopathy Narrative: This 45-year-old man presented to the hospital with several complaints. He has a history of episodic alcohol abuse and several days ago had binge drinking. He then ceased using alcohol and began to feel poorly. He describes shortness of breath with activity as well as discomfort in his chest. He described the discomfort in his chest as feeling like a grabbing or squeezing. He noticed this at rest and felt that it coincided with his heart rate. He noticed it particularly if he stayed still not moving. Because of his symptoms he presented here to the emergency room. His electrocardiogram showed sinus tachycardia left axis and left ventricular hypertrophy with poor R wave progression. On several electrocardiograms there were no acute changes. His troponin was mildly abnormal at 0.09 and remained essentially flat. He has been tachycardic since admission. He recently was initiated on extremely low doses of metoprolol which have not made much impact. He is hypertensive at baseline, recent blood pressure 144/95 His echocardiogram showed hypertrophic cardiomyopathy, normal EF The patient gives a history of hypertrophic cardiomyopathy involving multiple family members, including his father and an uncle. There is a family history of cardiac related . Unclear if this is dysrhythmia or sudden or related to myocardial infarction With this admission no chest x-ray was performed. A CT of the chest was done which excluded pulmonary emboli. It did not describe vascular congestion or pleural effusion. Hepatic steatosis was noted Consults Consult date: 03/02/21 Requesting physician: Ann Mead Review of Systems Cardiovascular Cardiovascular: Reports as per HPI, Reports chest pain, Reports chest pain at rest, Reports lightheadedness, Reports palpitations, Reports dyspnea and Reports dyspnea on exertion Respiratory Respiratory: Reports dyspnea and Reports dyspnea on exertion Endocrine Endocrine: Reports palpitations [facility] Medical History (Updated 03/02/21 @ 14:37 by Lore Yoo MD) Degenerative joint disease of left ankle Dental abscess Diverticulosis ETOH abuse History of tobacco abuse Hypertrophic cardiomyopathy Impingement of left ankle joint Internal bleeding hemorrhoids Left ankle injury (01/19/20) Marijuana use Polyarthralgia PTSD (post-traumatic stress disorder) Suicidal ideation Surgical History History of surgery exc. cyst removed S/P colonoscopy (~06/15/19) S/P hemorrhoidectomy (~06/15/19) banding x3 Family History Father Skin cancer Cardiomyopathy Maternal Uncle Colon cancer Mother Acid reflux disease with ulcer Sister Breast cancer Social History Smoking/Tobacco Use Status: Former Tobacco Use Smoking risk assessment performed?: Yes Alcohol Intake: current Alcohol Intake frequency: 3 or more drinks per day Alcohol type: beer Details: Patient relapsed 5 years ago. Stopped again 3 weeks ago,relapsed 5 days ag Drug use: Rarely Substance use type: marijuana Details: hx of etoh abuse pt reports today, 06/15/19 that he started drinking again, last time was 2 days ago, 5 beers. Medical marijuana uses edibles & smokes last time 2 days ago. 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 Current gender identity: male Do you feel safe at home: Yes Do you feel safe in your relationship?: Yes Exam Narrative Exam Narrative: Overweight and pleasant no acute distress Eyes Pupils: PERRL EOM: EOM intact bilaterally Neck Other: Neck is supple carotid pulsations are normal there are no bruits thyroid is nonpalpable Resp Effort & Inspection: normal respiratory effort Auscultation: clear to auscultation bilaterally Cardio Other: Heart is regular rate is approximately 100 there is no murmur or gallop Skin Other: Mildly clammy Results Last Vital Signs Temp 37.1 C 03/02/21 13:40 Pulse 100 H 03/02/21 13:42 Resp 16 03/02/21 13:40 BP 144/95 H 03/02/21 13:42 Pulse Ox 95 03/02/21 13:40 Labs Result diagrams: 03/02/21 06:10 03/02/21 06:10 Labs: Laboratory Results - last 24 hr 03/01/21 03/01/21 03/02/21 11:52 15:10 06:10 WBC RBC Hgb Hct MCV MCH MCHC RDW Plt Count MPV Immature Gran % Neutrophils % Lymphocytes % Monocytes % Eosinophils % Basophils % Nucleated RBC % Absolute Neutrophils Absolute Lymphocytes Absolute Monocytes Absolute Eosinophils Absolute Basophils Sodium 140 Potassium 3.3 L Chloride 102 Carbon Dioxide 26.7 Anion Gap 11.3 H BUN 16 Creatinine 1.1 Estimated GFR/1.73 m2 >= 60.00 Glucose 92 Calcium 8.9 Troponin I 0.08 H* 0.08 H* SARS-CoV-2 (PCR) Negative 03/02/21 06:10 WBC 8.76 RBC 5.43 Hgb 16.7 Hct 47.4 MCV 87.3 MCH 30.8 MCHC 35.2 RDW 12.4 Plt Count 153 MPV 8.9 Immature Gran % 0.9 Neutrophils % 48.4 Lymphocytes % 34.7 Monocytes % 10.4 Eosinophils % 4.7 Basophils % 0.9 Nucleated RBC % 0 Absolute Neutrophils 4.24 Absolute Lymphocytes 3.04 Absolute Monocytes 0.91 H Absolute Eosinophils 0.41 Absolute Basophils 0.08 Sodium Potassium Chloride Carbon Dioxide Anion Gap BUN Creatinine Estimated GFR/1.73 m2 Glucose Calcium Troponin I SARS-CoV-2 (PCR)
--- NOTE | 2021-03-02 16:21 | CMPROGNOTE_ITS ---
Care Management Progress Note S/O: Sancho continues to be closely monitored and treated; remains on CIWA protocol at this time with ativan available as needed. No change in overall plan, CM continues to follow. A: 45 year old male admitted to [facility] 03/01/21 for CHF P: Anticipate Rivas will be discharged home with no services when medically cleared by provider. 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 Rivas will additionally have a stress test on an outpatient basis. He will be driven home by his parents via private vehicle when ready. CM will continue to support Rivas and discharge planning needs.
[2021-03-02] MEDS: Metoprolol 50 MG TAB PO ×2 (16:56→21:50)
[2021-03-02] MEDS: chlordiazePOXIDE 25 MG CAP 50 MG PO ×2 (17:04→21:50)
[2021-03-03] VITALS (12 sets, daily range): BP systolic 118–161; BP diastolic 83–115; PULSE 59–94; RESP 16–19; TEMP 36–37.3; O2SAT 97–98
[2021-03-03] MEDS: Metoprolol 50 MG TAB PO ×3 (04:16→21:56)
[2021-03-03] MEDS: chlordiazePOXIDE 25 MG CAP 50 MG PO (04:16)
[2021-03-03] MEDS: Thiamine 100 MG TAB PO (07:38)
[2021-03-03] MEDS: LORazepam 1 MG TAB PO/SL ×2 (07:46→21:58)
[2021-03-03 09:10] LABS: Anion Gap 9.6 mmol/L (3-11); BUN 18 mg/dL (7-18); CO2 28.4 mmol/L (21.0-32.0); CREATININE 1.2 mg/dL (0.70-1.30); Calcium 9.4 mg/dL (8.5-10.1); Chloride 100 mmol/L (98-107); Glucose 119 mg/dL (74-106); Magnesium 2.4 mg/dL (1.8-2.4); Potassium 3.8 mmol/L (3.5-5.1); Sodium 138 mmol/L (136-145)
[2021-03-03] MEDS: Enoxaparin 40 MG/0.4 ML SYR SC (13:11)
--- NOTE | 2021-03-03 14:48 | W.PM.PROGNOT ---
Date of Service Date of service: 03/03/21 Time of Service: 14:49 Assessment and Plan Assessment and plan (1) Elevated troponin: Start date: 03/03/21 Start time: 14:53 Status: Acute Assessment and plan: HR improved, continue telemetry received asa, no acute st segment changes Trops flattened out at 0.08. Cardiology was consulted recommended 50 mg BB q 6 H however he did have HR as low as 49 las night will titrate down to 50 TID, he is also going through ETOH w/d Cardiology recommends follow up with them and outpatient testing Echo with cardiomyopathy F/u with cardiology on discharge Likely d/c home tomorrow (2) Heart failure: Start date: 03/03/21 Start time: 14:58 Status: Ruled-out Assessment and plan: Initially thought on admission r/o by echo as above Qualifiers: Heart failure type: systolic Heart failure chronicity: acute on chronic Qualified Code(s): I50.23 - Acute on chronic systolic (congestive) heart failure (3) ETOH abuse: Start date: 03/03/21 Start time: 14:59 Status: Chronic Assessment and plan: No alcohol since Friday. He is going through withdrawal. Does not like libruim dcd, will use ativan and gabapentin for w/d sx. CIWA 5 can have prn po ativan will monitor ciwa and adjust ativan dosing as needed, cessation discussed (4) Discharge planning issues: Start date: 03/03/21 Start time: 15:00 Status: Acute Assessment and plan: anticipate discharge to home with no services discussed with Dr. Burton Subjective Subjective Patient reports: no new complaints Interval history since last seen: Patient resting in bed. Denies CP, still scoring on CIWA. HR in 70's though he did drop into 40's overnight. Will keep him and monitor overnight, downgrade BB to 50 TID per cardiology note he can have outpatient work up with them. He does not like the librium will d/c and use ativan and gabapentin for w/d sx. He denies CP and SOB at this time. Exam Const General: cooperative, comfortable and ill appearing chronically Orientation: alert, awake and oriented x3 HENMT Head: normal to inspection and atraumatic Mouth: moist mucous membranes Eyes Pupils: PERRL Resp Effort & Inspection: normal respiratory effort and able to speak in complete sentences Auscultation: clear to auscultation bilaterally Cardio Jugular venous pressure: no JVD Rate: regular rate Rhythm: regular rhythm GI Inspection: normal to inspection Palpation: soft and no hepatosplenomegaly Auscultation: normal bowel sounds Skin General skin exam: no rashes or lesions noted Wounds: no wounds Neuro General: patient alert, patient awake and patient oriented x3 Cognition: normal cognition Speech: speech normal Extrem General: normal to inspection, full ROM and no clubbing, cyanosis or edema Psych Appearance: grossly normal Thought Process: normal Objective Last Vital Signs Temp 36.0 C L 03/03/21 07:40 Pulse 73 03/03/21 07:40 Resp 16 03/03/21 07:40 BP 131/91 H 03/03/21 07:40 Pulse Ox 97 03/03/21 07:40 Laboratory Results - last 24 hr 03/03/21 08:42 Sodium 138 Potassium 3.8 Chloride 100 Carbon Dioxide 28.4 Anion Gap 9.6 BUN 18 Creatinine 1.2 Estimated GFR/1.73 m2 >= 60.00 Glucose 119 H Calcium 9.4 Magnesium 2.4
--- NOTE | 2021-03-03 18:33 | CMPROGNOTE_ITS ---
- If Service Date Differs Date of service: 03/03/21 Time of Service: 18:34 Care Management Progress Note S/O: Per report, Sancho is going through alcohol withdrawal at this time. His troponins have flattened out at 0.08. He continues to be monitored on telemetry at this time, and Cardiology is following him. His admission diagnosis of CHF was ruled out by echo. CM will continue to follow. A: Sancho is a 45 year old male admitted to [facility] 03/01/21 for CHF P: Anticipate Rivas will be discharged home with no services when medically cleared by provider. 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 Rivas will additionally have a stress test on an outpatient basis. He will be driven home by his parents via private vehicle when ready. CM will continue to support Rivas and discharge planning needs.
[2021-03-03] MEDS: Gabapentin 300 MG CAP PO (21:55)
[2021-03-04 03:31] VITALS: BP 126/61; PULSE 74; RESP 18; TEMP 36.8; O2SAT 97
[2021-03-04 07:05] VITALS: PULSE 91
[2021-03-04 07:42] VITALS: BP 136/83; PULSE 70; RESP 18; TEMP 36.5; O2SAT 97
[2021-03-04] MEDS: Thiamine 100 MG TAB PO (07:42)
[2021-03-04] MEDS: Metoprolol 50 MG TAB PO (07:42)
[2021-03-04] MEDS: Gabapentin 300 MG CAP PO (07:42)
--- NOTE | 2021-03-04 09:10 | W.PM.DS.N ---
Date of service: 03/04/21 Time of Service: 09:11 DS: Diagnosis Discharge Diagnosis (1) Elevated troponin: Start date: 03/04/21 Start time: 09:11 Status: Acute Asessment and Plan: Flattened out. Likely d/t demand secondary from cardiomyopathy and ETOH withdrawal. HR improved Cardiology was consulted recommended 50 mg BB q 6 H however he did have HR as low as 49 las night will titrate down to 50 TID, he is also going through ETOH w/d Cardiology recommends follow up with them with outpatient testing Echo with cardiomyopathy Being discharge home on long acting BB 75 mg (2) ETOH abuse: Start date: 03/04/21 Start time: :21 Status: Chronic Asessment and Plan: Today he appears to be doing well. He did not like the librium taper therefore placed on ativan and gapabentin for w/d. He appears to be doing much better with this. He has been scoring 0-1 since starting this regimen. He appears less tremulous. Follow up with PCP as needed. discussed with Dr. Burton Discharge Plan Disposition Patient Disposition: HOME Condition: Improving Discharge Details Reason For Visit: chf Admit Date/Time: 03/01/21 11:49 Admit Provider: Sanjeev Luque Attending Provider: Sanjeev Luque Primary Care Provider: Marli Stahl Hospital Course Hospital Course: 45 y.o male with PMH of ETOH abuse, PTSD, presented to the ED with palpitations, heart pain and shortness of breath worsened with activity. no fevers or cough. no similar history. alcoholic in remission who drank heavily over the weekend, last drink was on Friday. He was initially treated with IV lasix thought to have CHF. On admission potassium was 3.3 requiring supplemental repletion, elevated trops of 0.9. He was admitted to m/s telemetry. HR averaged in 120's he was placed on BB, echo revealed cardiomyopathy, no HF. He has a strong family history of cardiomyopathy including his father and an uncle who of this. Cardiology consulted, they recommend f/u in the office with outpatient work up and BB q 6H. He was unable to tolerate q6H bb this was titrated down to 50 TID and he did well keeping HR under 100. He was scoring on CIWA up to 7 on 01/31 therefore placed on librium. He did not like the librium made him feel. Librium was dcd and ativan and gabapentin was used. Since then he has not scored higher than a 1. Today he feels well. HR has maintained under 100 bpm. He feels well today and looks well. Will discharge home with gabapentin taper, Cardiology consult. PCP follow up he can make, BB 75 mg CR. He denies CP, SOB, nvd. Home Meds and New Rx's Prescriptions: New gabapentin 300 mg Capsule 300 mg PO TID Qty: 18 RF: 0 lorazepam 1 mg Tablet 1 mg PO/SL DIRECTED PRNQty: 20 RF: 0 metoprolol succinate 50 mg Tablet Extended Release 24 Hr 75 mg PO NOW Qty: 30 RF: 0 No Action (DME) medical marijuana Qty: 1 RF: 0 Discharge Instructions Instructions: Metoprolol (By mouth), Dilated Cardiomyopathy (DC), Abuse of Alcohol (DC), Alcohol Withdrawal (DC), Anxiety (DC) Additional Instructions: Take metoprolol daily you can take it in the morning or at night it can make you tired for at least x 1 month Follow up with Cardiology we will call tomorrow and make you an appt and call you with a time. Follow up with your PCP, you can call and make that appt tomorrow. Take gabapentin as stated, if you decide to drink DO NOT TAKE GABAPENTIN OR ATIVAN Stand Alone Forms: Nursing Discharge Form Referrals: Marli Stahl [Primary Care Provider] - Blair Flood MD [ CONSULTING PHYSICIAN] - (we will call you tomorrow with an appt. this will be at [facility]) Activity:: Activity as Tolerated Equipment/Supplies:: No Equipment Needed Diet:: Low Sodium Discharge Orders Discharge Orders: Discharge Order (Routine); Ordered 03/04/21 Ordered By: Henny Friend DS: Summary Time Spent with Patient providing and/or coordinating discharge services: Less than 30 minutes Status at Discharge Functional status at discharge: independent ambulation Overall status at discharge: patient is progressing back to baseline Mental Status: mental status grossly normal Speech and Movement: speech and movement normal Mood: congruent mood Affect: normal affect Exam Const General: cooperative, comfortable and ill appearing chronically Orientation: alert, awake and oriented x3 HENMT Head: normal to inspection and atraumatic Mouth: moist mucous membranes Eyes Pupils: PERRL Resp Effort & Inspection: normal respiratory effort and able to speak in complete sentences Auscultation: clear to auscultation bilaterally Cardio Jugular venous pressure: no JVD Rate: regular rate Rhythm: regular rhythm GI Inspection: normal to inspection Palpation: soft and no hepatosplenomegaly Auscultation: normal bowel sounds Skin General skin exam: no rashes or lesions noted Wounds: no wounds Neuro General: patient alert, patient awake and patient oriented x3 Cognition: normal cognition Speech: speech normal Extrem General: normal to inspection, full ROM and no clubbing, cyanosis or edema Psych Appearance: grossly normal Mental Status: mental status grossly normal Speech and Movement: speech and movement normal Mood: congruent mood Affect: normal affect Thought Process: normal DS: Data Vitals/I&O Vitals and I&O: Vital Signs Temperature 36.5 C 03/04/21 07:42 Temperature Source Tympanic 03/04/21 07:42 Pulse 70 03/04/21 07:42 Pulse Rhythm Regular 03/04/21 04:45 Pulse 97 H 03/01/21 12:00 Respiratory Rate 18 03/04/21 07:42 Respiratory Effort Non-Labored 03/04/21 04:45 Respiratory Depth Normal 03/04/21 04:45 Respiratory Pattern Normal 03/04/21 04:45 Blood Pressure 136/83 03/04/21 07:42 Blood Pressure Mean 91 03/01/21 12:32 Blood Pressure Position Supine 03/01/21 08:58 Pulse Oximetry 97 03/04/21 07:42 Oxygen Delivery Method Room Air 03/04/21 07:42 Oxygen Flow Rate 0 03/04/21 07:42 Pain Level 0 03/04/21 03:31 Intake & Output 03/03/21 03/03/21 03/04/21 11:59 23:59 11:59 Intake Total 250 / 1540 1290 / 1540 Balance 250 / 1540 1290 / 1540 Weight 115.4 kg 116.2 kg Intake: IV Oral 240 / 1530 1290 / 1530 Other: Urine Appearance Clear Clear Clear Voiding Methods Toilet Data Completed and Pending Completed studies during hospitalization [Text1]: COMPARISON: No exams were available for comparison FINDINGS: CHEST: PULMONARY ARTERIES: There are no obvious intraluminal filling defects to suggest acute pulmonary emboli. LUNGS: There are no infiltrates nor evidence of pulmonary infarction.. There are no pleural effusions. MEDIASTINUM: There is no hilar nor mediastinal adenopathy. Visualized thyroid unremarkable. CARDIAC: Heart size is normal. There is no pericardial effusion.Caliber of the thoracic aorta is within normal limits. There is no significant shift of the interventricular septum. PARTIALLY VISUALIZED UPPERMOST ABDOMEN: Hepatic steatosis. No adrenal masses. OSSEOUS: No significant osseous lesions.. IMPRESSION: 1. No evidence of acute pulmonary emboli. No evidence of pulmonary infarction.No pleural effusions. 2. Normal heart size. No pericardial effusion.. No evidence of aortic dissection. 3. Hepatic steatosis noted. EXAM: Comprehensive 2D, Doppler, and color-flow Echocardiogram Patient Location: In-Patient Room/Bed: [facility] [place] [facility] [place] [employer] Supervisor: Radha Abad RDCS (AE) Indications: CHF Other Information Study Quality: Adequate Conclusion Left ventricular chamber size is normal. There is asymmetric septal hypertrophy, measuring 2.2 cm, posterior wall 1.2 cm. Left ventricular systolic function is normal. Estimated ejection fraction is 55 to 60%. There are no segmental wall motion abnormalities Normal right ventricular size and systolic function Both atria are normal in size There is no significant valvular disease Mildly dilated ascending aorta measuring 3.53 cm Wall motion Left Ventricle Left ventricular cavity is small. Asymmetric septal thickening is noted. Severe basal septal hypertrophy is present. . There is no ventricular septal defect visualized. LVEF is 55-60%. Right Ventricle The right ventricle is normal size. The right ventricular systolic function is normal. Atria The left atrium size is normal. The right atrium size is normal. The interatrial septum is intact with no evidence for an atrial septal defect. Aortic Valve The aortic valve is normal in structure. Aortic valve is trileaflet. There is no aortic valvular stenosis. No aortic regurgitation is present. Mitral Valve Mild mitral annular calcification. No evidence of mitral valve stenosis. Trace mitral regurgitation. Tricuspid Valve The tricuspid valve is normal in structure. There is no tricuspid valve stenosis. Trace tricuspid regurgitation. Unable to assess PA pressure. Pulmonic Valve The pulmonary valve is normal in structure. There is no pulmonic valvular stenosis. There is no pulmonic valvular regurgitation. Great Vessels The aortic root is normal in size. The ascending aorta is mildly dilated. Aortic arch is normal in caliber. The IVC collapses <50% with inspiration. Pericardium There is no pericardial effusion. Labs on day of discharge: Labs from last 24 hours 03/03/21 08:42 Sodium 138 Potassium 3.8 Chloride 100 Carbon Dioxide 28.4 Anion Gap 9.6 BUN 18 Creatinine 1.2 Estimated GFR/1.73 m2 >= 60.00 Glucose 119 H Calcium 9.4 Magnesium 2.4 PFSH Medical History Degenerative joint disease of left ankle Dental abscess Diverticulosis ETOH abuse History of tobacco abuse Hypertrophic cardiomyopathy Impingement of left ankle joint Internal bleeding hemorrhoids Left ankle injury (01/19/20) Marijuana use Polyarthralgia PTSD (post-traumatic stress disorder) Suicidal ideation Surgical History History of surgery exc. cyst removed S/P colonoscopy (~06/15/19) S/P hemorrhoidectomy (~06/15/19) banding x3 Family History Father Skin cancer Cardiomyopathy Maternal Uncle Colon cancer Mother Acid reflux disease with ulcer Sister Breast cancer Social History Smoking/Tobacco Use Status: Former Tobacco Use Smoking risk assessment performed?: Yes Alcohol Intake: current Alcohol Intake frequency: 3 or more drinks per day Alcohol type: beer Details: Patient relapsed 5 years ago. Stopped again 3 weeks ago,relapsed 5 days ag Drug use: Rarely Substance use type: marijuana Details: hx of etoh abuse pt reports today, 06/15/19 that he started drinking again, last time was 2 days ago, 5 beers. Medical marijuana uses edibles & smokes last time 2 days ago. current occupation: [employer] Current gender identity: male Do you feel safe at home: Yes Do you feel safe in your relationship?: Yes
[2021-03-04] MEDS: Metoprolol CR 50 MG TABCR PO (10:57)
[2021-03-04 11:00] VITALS: PULSE 77
--- NOTE | 2021-03-04 11:38 | PDOC.CMDIS ---
- If Service Date Differs Date of service: 03/04/21 Time of Service: 11:38 LACE Index Scoring Tool - Questions: Length of Stay (in days): 3 Acuity (Admit via E.D.?): Yes E.D. Visits: 2 - Answers: Total Score: 8 Risk of Readmission: Low Risk Care Management Discharge Reason for Hospitalization: CHF. Discharge Plan: Sancho will return home with no services at this time. His parents will transport him home via private vehicle. He will follow up with his PCP, Cardiology, and his discharge plan of care. Patient/Family Education Needs: Review discharge instructions regarding activity levels and medications, discussion of self care needs including ask me three.
== END 2021-03-04 11:21 | disposition home or self-care (01) | DRG 315 ==
LOC: ER 13:24 → MS 14:06
PROVIDERS: Nurse Practitioner Acute Care; Nurse Practitioner Family; Admitting Provider Family Medicine; Emergency Provider Physician Assistant; PCP Nurse Practitioner Family; Visit Provider Family Medicine
DX: I42.2 Other hypertrophic cardiomyopathy (principal); F10.139 Alcohol abuse with withdrawal, unspecified; I24.8 Other forms of acute ischemic heart disease; F10.10 Alcohol abuse, uncomplicated; M19.072 Primary osteoarthritis, left ankle and foot; K57.90 Diverticulosis of intestine, part unspecified, without perforation or abscess without bleeding; Z87.891 Personal history of nicotine dependence; F43.10 Post-traumatic stress disorder, unspecified; F12.90 Cannabis use, unspecified, uncomplicated; Z20.822 Contact with and (suspected) exposure to COVID-19
CPT/HCPCS: 36415; 71275; 80048; 80053; 87635; 93005; 96361; 96374; 96375; 99285; J1650; 80320; 83735; 83880; 84443; 84484; 85025; 93010; 93306; 99223; 99232; 99233; 99238; 99284; J1940; J2060; J3490

== ENCOUNTER 2021-03-27 01:46 | Outpatient (CLI) | payer MEDICAID, SELFPAY ==
--- NOTE | 2021-03-27 07:45 | DI.NM_ITS ---
APPROVED REPORT Exam: Pharmacologic Patient Location: Out-Patient Room/Bed: Stress Nurse: Sylvie Holden RN Ordering Provider:ROOSEVELT GALLO, Contact Number: [phone] BMI: 35.43 Baseline Rhythm: Sinus Bradycardia Indications: Chest pain, hypertrophic cardiomyopathy Medical History Medical History: CHF, hypertrophic cardiomyopathy, DVT (08/04), degenerative joint disease, PVD, obes ity Cardiac Medications: Metoprolol succinate, lorazepam, medical marijuana Allergies: NKA Cardiac Risk Factors: Obesity, smoker (former), family hx, PVD Previous Cardiac Procedures: None Pretest Chest Pain Characteristics: Intermittent midsternal achey CP 11/22 Exercise History: Sedentary Physical Disabilities: L ankle injury Lung Sounds: Clear to auscultation Heart Sounds: Regular Stress Test Details Test: Pharmacologic stress was paired with low level exercise. Reason for pharmacologic stress test: physical limitation. Nuclear Acquisition: Rest Tc-99m/Stress Tc-99m 1 day Rest Isotope: Tc-99m Sestamibi. Dose: 14.0 Date: 03/27/2021 Injection Time: 1120 Stress Isotope: Tc-99m Sestamibi. Dose: 46.0 Date: 03/27/2021 Injection Time: 1305 HR Resting HR Supine: 49 bpm Max Heart Rate (APMHR): 176.754476 bpm Resting HR Standin bpm Target HR (85% APMHR): 149.686279 bpm Max HR Achieved: 121 bpm % of APMHR: 68.75 Recovery HR: 84 bpm Comment: Metoprolol succinate not held. BP Resting BP Supine: 130/72 mmHg Resting BP Standin/70 mmHg Max BP: 128/76 mmHg Recovery BP: 128/74 mmHg ECG Resting ECG: Sinus Bradycardia Ectopy: None Comment: Positional diffuse inverse T waves when pt supine. Inverse T waves lead III and V6 when pt s tanding. Stress ECG: Sinus Tachycardia ST Change: No significant ST segment changes noted Arrhythmia: None Recovery ECG: Sinus Rhythm Recovery ST Change: No significant ST segment changes noted, Recovery Arrhythmia: None Clinical Stress Symptoms: Dyspnea, Dizziness Exercise duration: 4 min00 sec Rate Pressure Product: [id number] Stress ECG Conclusion 1. Is a pharmacological stress test. 2. The EKG portion of this exam is nondiagnostic. Stress Test Summary STAGE HR BP Symptoms NOTES Supine 49 130/72 SpO2 98%. Resting intermittent midsternal achey CP 3/10 1 min post Lexiscan injection 120 126/80 mild SOB, mild dizziness SpO2 98% 3 min post Lexiscan injection 108 128/76 symptoms improving SpO2 97% 6 min post Lexiscan injection 84 128/74 symptoms improving SpO2 99% MPI Conclusion Ejection fraction was 58% with stress. There were no wall motion abnormalities. There was a small fixed perfusion defect at the apex that likely represent artifact (worse with rest) . This likely represents a normal SPECT stress test. Radiologist Interpretation Radiologist agrees with Base Manager's Interpretation. Radiologist Interpretation by: Cadence Martin MD Interpretation Date/Time: 03/27/2021 15:53:50
[2021-03-27] MEDS: Regadenoson 0.4 MG/5 ML SYR IVP (13:33)
== END 2021-03-27 02:06 ==
PROVIDERS: PCP Nurse Practitioner Family; Visit Provider Internal Medicine Cardiovascular Disease
DX: I42.2 Other hypertrophic cardiomyopathy (principal); R07.89 Other chest pain; E66.9 Obesity, unspecified; I73.9 Peripheral vascular disease, unspecified; I50.9 Heart failure, unspecified; Z82.49 Family history of ischemic heart disease and other diseases of the circulatory system
CPT/HCPCS: 78452; 93017; J2785

== ENCOUNTER 2021-09-06 02:48 | Outpatient (CLI) | payer MEDICAID, SELFPAY ==
--- NOTE | 2021-09-06 | DI.RAD_ITS ---
Exam(s) XR KNEE LT 3V AP,LAT,CHRIS EXAM: XR KNEE LT 3V AP,LAT,CHRIS CLINICAL HISTORY: LEFT KNEE PAIN M25.562. TECHNIQUE: 2D digital imaging was performed. COMPARISON: No exams were available for comparison FINDINGS: BONES: No acute fracture is present. No bony destructive lesion is seen. JOINTS: The knee is normally aligned. No joint effusion is seen. Joint spaces well maintained. No s ignificant periarticular spurring. SOFT TISSUE: Normal. IMPRESSION: Normal radiographs of the left knee. DATA REPOSITORY: RADIATION DOSE DELIVERED:
== END 2021-09-06 03:08 ==
PROVIDERS: PCP Nurse Practitioner Family; Visit Provider Nurse Practitioner Family
DX: M25.562 Pain in left knee (principal)
CPT/HCPCS: 73562

== ENCOUNTER → 2022-01-01 01:01 | Outpatient (CLI) | payer MEDICAID, SELFPAY ==
--- NOTE | 2022-01-01 | DI.MRI_ITS ---
Exam(s) MR LOWER JOINT LT WO EXAM: MR LOWER JOINT LT WO CLINICAL HISTORY: CONTUSION LEFT KNEE S80.02XA, LEFT KNEE, PATELLAR AND TIBIAL BONE BRUISE TECHNIQUE: Multiplanar multisequence MRI of the left knee was performed. COMPARISON: CR XR KNEE LT 3V AP,LAT,CHRIS from 09/06/2021 FINDINGS: EFFUSION: There is a small amount of increased joint fluid. There is no large joint effusion. Howev er, there is a bilobed marquez cyst in the medial popliteal fossa. This is partially septated. Does n ot contain loose intra-articular body. MARROW:There is no evidence of fracture, bone contusion, nor osteochondral defects.. There are no si gnificant osseous lesions. PATELLOFEMORAL COMPARTMENT: The quadriceps tendon is intact. The patellar ligament is intact. Mild increased signal is noted in the superolateral fat of Hoffa fat pad indicating an element of impingem ent. There is thinning of the retropatellar cartilage, most prominent over these central facet where there is a focal fissure the thickness the retropatellar cartilage and a tiny focus of increased signal in the posterior aspect of the patella at this level. There is also some uniform thinning of the retro patellar cartilage over the medial facet; less so over the lateral facet.There is no intraosseous sig nal to suggest recent patellar dislocation. There are no patellar retinacular tears. CRUCIATE LIGAMENTS: The anterior cruciate ligament is intact.The posterior cruciate ligament is intac t. MEDIAL COMPARTMENT/MEDIAL MENISCUS: There is a small horizontal tear in the posterior horn of the med ial meniscus seen parallel to the inferior surface of the meniscus on the coronal images but appearin g to contact the articular surface on the sagittal images.. The meniscal root is intact. Anterior h orn is intact. There is no meniscocapsular separation There are no chondral defects, osteochondral defects, subarticular marrow edema, nor osteophytes evid ent. MEDIAL COLLATERAL LIGAMENT: Intact LATERAL COMPARTMENT/LATERAL MENISCUS: There is no evidence of lateral meniscal tear.There are no clovis dral defects, osteochondral defects, subarticular marrow edema, nor osteophytes evident. ILIOTIBIAL BAND: Intact LATERAL COLLATERAL LIGAMENT COMPLEX: The fibular collateral ligament is intact. The biceps femoris t endon is intact.Popliteus muscle and tendon are intact. IMPRESSION: 1. There is chondromalacia patella and there is focal fissure in the mid aspect of the retropatellar cartilage which is full-thickness and which is associated with a tiny focus of subarticular increased intraosseous signal in the posterior patella at this level. No formed osteochondral defect seen at this level. In addition, there is some mild increased signal seen in the superior-lateral aspect of the anterior intra-articular Hoffa fat pad. This may indicate an element of impingement. 2. There is a small inferior surface tear in the posterior horn of the medial meniscus. No evidence of bucket-handle configuration. No meniscocapsular separation. Meniscal root is intact. Anterior h orn is intact. No tears of the lateral meniscus. Minimal degenerative changes in the medial lateral compartments. No subarticular edema nor OCD evident in these compartments. 3. Cruciate and collateral ligaments are intact. 4. Small amount of increased joint fluid. No large joint effusion. There is a bilobed Marquez's cyst in the medial popliteal fossa. DATA REPOSITORY:
== END ==
PROVIDERS: PCP Nurse Practitioner Family; Visit Provider Nurse Practitioner Acute Care
DX: S80.02XA Contusion of left knee, initial encounter; M25.462 Effusion, left knee; M22.42 Chondromalacia patellae, left knee; S83.242A Other tear of medial meniscus, current injury, left knee, initial encounter; M71.22 Synovial cyst of popliteal space [Baker], left knee
CPT/HCPCS: 73721

== ENCOUNTER 2022-04-10 14:58 | Outpatient (REF) | payer MEDICAID, SELFPAY ==
[2022-04-10 16:22] LABS: HCT 44.9 % (40.0-50.0); HGB 15.7 g/dL (13.5-17.5); MCH 28.5 pg (27.0-33.0); MCV 82 fL (80-95); MPV 9.5 fL (8.0-11.0); Platelet Count 175 10^3/uL (130-400); RDW 12.4 % (11.8-14.1); RDW-SD 37.1 fL; WBC 8.73 10^3/uL (4.4-10.8)
[2022-04-10 16:50] LABS: Anion Gap 1.7 mmol/L (3-11); BUN 13 mg/dL (7-18); CO2 28.3 mmol/L (21.0-32.0); CREATININE 1.3 mg/dL (0.70-1.30); Calcium 9.1 mg/dL (8.5-10.1); Chloride 101 mmol/L (98-107); Glucose 93 mg/dL (74-106); Potassium 3.8 mmol/L (3.5-5.1); Sodium 131 mmol/L (136-145); TSH (W/Ref FT4) 1.85 uIU/mL (0.36-3.74)
== END 2022-04-10 14:59 | disposition home or self-care (01) ==
LOC: NCHCN 14:58
PROVIDERS: PCP Nurse Practitioner Family; Referring Provider Physician Assistant Medical; Visit Provider Physician Assistant Medical
DX: R00.2 Palpitations (principal)
CPT/HCPCS: 80048; 85027; 83735; 84443

== ENCOUNTER 2022-04-19 02:04 | Outpatient (RCR) | payer MEDICAID, SELFPAY ==
--- NOTE | 2022-04-19 08:15 | HOLTER_ITS ---
APPROVED REPORT Conclusion This is a 48-hour Holter monitor, ordered for palpitations Rhythm throughout was sinus with an average heart rate of 57. Minimum was 40, maximum 103 A total of 4 isolated premature ventricular contractions occurred There were 4 isolated premature atrial contractions There was no atrial fibrillation, no high-grade AV block, no pauses greater than 3 seconds It was unclear if the patient had symptoms
== END 2022-05-15 23:59 | disposition home or self-care (01) ==
LOC: RT 02:04
PROVIDERS: PCP Nurse Practitioner Family; Visit Provider Physician Assistant Medical
DX: R00.2 Palpitations (principal); I49.3 Ventricular premature depolarization; I49.1 Atrial premature depolarization
CPT/HCPCS: 93225; 93226

== ENCOUNTER 2022-04-19 09:02 | Outpatient (CLI) | payer MEDICAID, SELFPAY ==
[2022-04-19 09:36] LABS: Anion Gap 5.8 mmol/L (3-11); BUN 10 mg/dL (7-18); CO2 30.2 mmol/L (21.0-32.0); CREATININE 1.4 mg/dL (0.70-1.30); Calcium 8.9 mg/dL (8.5-10.1); Chloride 102 mmol/L (98-107); Glucose 84 mg/dL (74-106); Potassium 4.2 mmol/L (3.5-5.1); Sodium 138 mmol/L (136-145)
== END 2022-04-19 09:03 | disposition home or self-care (01) ==
LOC: LBO 09:02
PROVIDERS: PCP Nurse Practitioner Family; Visit Provider Physician Assistant Medical
DX: E87.1 Hypo-osmolality and hyponatremia (principal)
CPT/HCPCS: 36415; 80048

== ENCOUNTER 2022-06-27 16:42 | Outpatient (REF) | payer MEDICAID, SELFPAY ==
[2022-06-27 19:39] LABS: Vitamin D 25 Total 19.5 ng/mL (30-100)
== END 2022-06-27 16:43 | disposition home or self-care (01) ==
LOC: NCHCN 16:42
PROVIDERS: PCP Nurse Practitioner Family; Visit Provider Nurse Practitioner Family
DX: R53.83 Other fatigue (principal); F41.8 Other specified anxiety disorders
CPT/HCPCS: 82306

== ENCOUNTER 2023-05-20 08:19 | Outpatient (CLI) | payer MEDICAID, SELFPAY ==
--- NOTE | 2023-05-20 08:15 | RT.EKG_ITS ---
APPROVED REPORT Exam: Resting ECG Reason for Exam: cardiac evaluation Patient Location: O HR:74 bpm ECG Measurements Heart Rate 74 AXIS FL 173 P 8 QRSd 98 QRS 228 QT 385 T 19 QTc 428 Conclusion Sinus rhythm...normal P axis, V-rate 50- 99 Markedly posterior QRS axis...late V-lead transition Low voltage, extremity leads...all extremity leads <0.5mV Consider left ventricular hypertrophy...(R aVL+S V3) >2.80mV Late transition
== END 2023-05-20 08:20 | disposition home or self-care (01) ==
LOC: DI.CARD 08:19
PROVIDERS: PCP Nurse Practitioner Family; Visit Provider Internal Medicine Cardiovascular Disease
DX: I42.2 Other hypertrophic cardiomyopathy (principal); I50.9 Heart failure, unspecified
CPT/HCPCS: 93010

== ENCOUNTER 2023-06-23 13:07 | Outpatient (REF) | payer MEDICAID, SELFPAY ==
[2023-06-23 15:58] LABS: Abs Immature Grans 0.05 10^3/uL (0.0-0.06); Absolute Eosinophil Count 0.36 10^3/uL (0.0-0.7); Absolute Lymphocyte Count 2.18 10^3/uL (1.2-3.4); Absolute Monocyte Count 0.52 10^3/uL (0.1-0.8); Absolute Neutrophil Count 4.33 10^3/uL (1.2-6.7); Basophils % 1.3; Eosinophils % 4.8; HCT 45.7 % (40.0-50.0); HGB 15.6 g/dL (13.5-17.5); Immature Grans % 0.7; Lymphocytes % 28.9; MCH 27.4 pg (27.0-33.0); MCHC 34.1 % (32.0-36.0); MCV 80 fL (80-95); MPV 9.3 fL (8.0-11.0); Monocytes % 6.9; Neutrophils % 57.4; Platelet Count 185 10^3/uL (130-400); RDW-SD 40.4 fL; WBC 7.54 10^3/uL (4.4-10.8)
[2023-06-23 17:14] LABS: ALT 48 U/L (16-63); AST 20 U/L (15-37); Albumin 4.1 g/dL (3.4-5.0); Alkaline Phosphatase 76 U/L (46-116); BUN 14 mg/dL (7-18); Bilirubin, Total 0.4 mg/dL (0.2-1.0); CREATININE 1.2 mg/dL (0.70-1.30); Calcium 9.6 mg/dL (8.5-10.1); Calculated LDL 150 mg/dL (<100); Chloride 104 mmol/L (98-107); Cholesterol 239 mg/dL (<200); Estimated GFR 75.53 (mL/min/1.73m2); Folate 13.8 ng/mL (8.6-20.0); Glucose 131 mg/dL (74-106); HDL Cholesterol 33 mg/dL (40-60); Magnesium 2.1 mg/dL (1.8-2.4); Potassium 4.7 mmol/L (3.5-5.1); Sodium 140 mmol/L (136-145); Total Protein 7.9 g/dL (6.4-8.2); Triglyceride 284 mg/dL (<150); Vitamin B12 251 pg/mL (193-986)
[2023-06-23 18:30] LABS: Vitamin D 25 Total 22.6 ng/mL (30-100)
== END 2023-06-23 13:08 | disposition home or self-care (01) ==
LOC: NCHCN 13:07
PROVIDERS: PCP Nurse Practitioner Family; Visit Provider Nurse Practitioner Family
DX: Z00.00 Encounter for general adult medical examination without abnormal findings (principal); E55.9 Vitamin D deficiency, unspecified; Z86.59 Personal history of other mental and behavioral disorders
CPT/HCPCS: 80053; 80061; 82306; 82607; 82746; 83735; 85025

== ENCOUNTER → 2023-08-12 02:50 | Outpatient (CLI) | payer MEDICAID, SELFPAY ==
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
--- OUTSIDE RECORDS SUMMARY | 2023-08-02 14:37 | XMS_ITS | Continuity of Care Document ---
Author Name Unknown Organization [facility] Ambulatory Clinics Address [address] [place] [address] Care Team Providers Care Programs Manager Name Role Phone NANETTE COLEMAN Primary Care Physician [phone] Encounter [facility] NBR [id number] Date(s): 07/26/22 - 07/26/22 [facility] Ambulatory Clinics [address] [place], [place] [address] Encounter Diagnosis Pes anserine bursitis(Discharge Diagnosis) - 07/26/22 Discharge Disposition: Home or Self Care Attending Physician: Adilene Harrington DIRECTOR OF MEDICAL SERVICES, Allergies, Adverse Reactions, Alerts No Known Allergies Functional Status 07/26/22 Other exposure to Infectious Disease Non e Medications clonazePAM 0.5 mg oral tablet 1 Unknown, 0 Refill(s) Start Date: 07/26/22 Status: Ordered gabapentin 300 mg oral capsule Oral, TID, 0 Refill(s) Start Date: 07/26/22 Status: Ordered hydrOXYzine pamoate 100 mg oral capsule 0 Refill(s) Start Date: 07/26/22 Status: Ordered ibuprofen 400 mg oral tablet 400 mg = 1 tab, Oral, every 4 hr, PRN as needed for fever, # 60 tab, 0 Refill(s) Start Date: 07/26/22 Status: Ordered metoprolol succinate 50 mg oral capsule, extended release 1 Unknown, 0 Refill(s) Start Date: 07/26/22 Status: Ordered Vitamin D3 50 mcg (2000 [...] Range]: 1 Peripheral Pulse Rate [60-100 bpm] 54 bp m *LOW* (07/26/22 10:04 AM) Blood Pressure [90-140/60-90 mmHg] 122/8 4mmHg (07/26/22 10:04 AM) Weight 119.20 kg (07/26/22 10:04 AM) Weight Measured (lbs) 262.791 lb (07/26/22 10:04 AM) Height 187.96 cm (07/26/22 10:04 AM) Height/Length Measured (inches) 74 inch (07/26/22 10:04 AM) BSA Measured 2.49 m2 (07/26/22 10:04 AM) Body Mass Index 33.74 kg/m2 (07/26/22 10:04 AM) Social History Social History Type Response Tobacco Never tobacco user T obacco Use:. Sex Hospital Discharge Instructions Follow Up Care 07/19/2022 13:56:17 With:Return to this practice Address: When: only if needed Physician Outpatient Note * Adilene Harrington APRN,: PERFORM Event Display: Office Clinic Note Physician Authored Date: [id number] BENSON HALL :1975 Age:46 years Sex:Male Visit Date:07/26/2022 Primary Care Physician: NANETTE COLEMAN Chief Complaint Left Knee Pain History of Present Illness Rivas is a pleasant 46-year-old who I have been seeing for left knee pain.?? He fell on the ice last year, landed directly on the??left knee. ??I last saw him in January, MRI showed patellofemoral OA with impingement of the infrapatellar fat pad as well as a small medial meniscal tear.?? At that time he was recovering from ankle surgery, he opted to treat the knee with a cortisone injection.?? He states the injection was very helpful for relieving his knee pain.?? However he has continued to have significant point tenderness anterior and??medial??to the knee.?? It is causing difficulty with kneeling and sleeping.?? Otherwise the knee is feeling well. ??No catching or locking,??no instability.?? He wonders what else can be done for the point tenderness. ??Of note, he continues to recover from left ankle surgery that occurred last year. Review of Systems Anterior left knee pain Otherwise negative ROS Physical Exam Vitals & Measurements HR:??54??(Peripheral)?? BP:??122/84?? SpO2:??96%?? HT:??187.96??cm?? WT:??119.20??kg?? BMI:??33.74?? Pain Score:??4?? BSA:??2.49?? The patient is alert and oriented x3. ??Very pleasant. ??No acute distress. ??He appears stated ageand is well-nourished and well-developed. ??Pleasant and cooperative. ??Well-dressed and well-groomed. ??Examination of the left knee reveals no deformity. ??Skin is intact. ??There is no erythema orwarmth. ??No signs or symptoms of infection.?? There is exquisite point tenderness overlying the pes anserine bursa. ??No joint line point tenderness. ??No point tenderness about the quad or patella tendons.?? Range of motion is intact. ??The knee is ligamentously stable in all planes. ??Calf compartment is soft and nontender.?? The left lower extremity is neurovascularly intact distally. Procedure Risks, benefits and alternatives to this injection are discussed with the patient, verbal consent was obtained. ??Under standard, sterile technique, the area of maximal tenderness overlying the??pes anserine region of the left knee is meticulously prepped with alcohol x3. ??Then??6 mg of Celestone combined with 1% lidocaine plain is injected without difficulty. ??The patient tolerated the injection very well and a dry, sterile bandage is applied. ??Postinjection instructions are provided. Assessment/Plan 1.??Pes anserine bursitis??M70.50 iRvas is a pleasant 46-year-old man??who has been struggling with left knee pain for almost a year now, since he fell directly onto the knee on some ice.?? Currently the knee is feeling quite good, he underwent cortisone injection??last January. ??However he continues to have significant point tendernessin the region of the pes anserine bursa.?? He has not responded to supportive treatment including physical therapy and anti-inflammatories.?? He wonders what else can be done. ??I have suggested Voltaren gel.?? We also discussed cortisone injection, he would like to give this a try. ??I am happy todo this for him today. ??I will plan on seeing him back on an as-needed basis. ??He is in agreementwith that plan. ??He is encouraged to contact the office at anytime with questions or concerns.?? Ispent 20 minutes in reviewing the record, seeing the patient and documenting in the medical record. Ordered: Celestone Soluspan, 6 mg, Subcutaneous, Once, First Dose: 07/26/22 10:28:00 EST, Stop Date: 07/26/22 10:28:00 EST, Physician Stop, Routine ?? Follow Up Instructions With When Contact Information Return to this practice Only if needed Additional Instructions: Problem List/Past Medical History Ongoing Asthma Gout Hypertension Poor circulation Historical No qualifying data Procedure/Surgical History ???Procedure on bone of ankle Medications Celestone Soluspan, 6 mg, Subcutaneous, Once clonazePAM 0.5 mg oral tablet gabapentin 300 mg oral capsule, Oral, TID hydrOXYzine pamoate 100 mg oral capsule ibuprofen 400 mg oral tablet, 400 mg= 1 tab, Oral, every 4 hr, PRN metoprolol succinate 50 mg oral capsule, extended release Vitamin D3 50 mcg (2000 intl units) oral tablet, chewable, 50 mcg= 1 tab, Oral, Daily Allergies No Known Allergies Social History Electronic Cigarette/Vaping Electronic Cigarette Use: Never. Substance Use Marijuana- Comments: medical marijuana Tobacco Never tobacco user Tobacco Use:. Family History Arthritis: Grandmother (M). Clotting and bleeding disorders: Father. Heart attack: Grandfather (P) and Grandmother (M). High cholesterol: Father and Grandfather (P). Hypertension: Mother and Father. Electronically Signed on 07/26/22 10:28 AM Adilene Harrington APRN, Patient Care team information Care Team Personnel Name: NANETTE COLEMAN Position: No Access Member Role: Primary Care Physician Address: Address: [address] [place], [place] [address]
--- OUTSIDE RECORDS SUMMARY | 2023-08-02 14:37 | XMS_ITS | Continuity of Care Document ---
Author Name Unknown Organization [facility] Address [address] [place] [address] Care Team Providers Care Instructor Nurse Name Role Phone Marli Stahl Primary Care Physician Encounter [facility] Date(s): 07/30/23 - 07/30/23 [facility] [address] [place] [address] Discharge Disposition: Home Allergies, Adverse Reactions, Alerts Substance Reaction Severity Status prazosin Severe Active citalopram Unknown Active buPROPion Severe Active Effexor Unknown Active NAC Severe Active BuSpar Unknown Active FLUoxetine Unknown Active lamoTRIgine Severe Active vilazodone Severe Active Assessment and Plan Future Appointments Medications clonazePAM 1 mg oral tablet 1 mg = 1 tab, Oral, BID, 0 Refill(s) Start Date: 07/28/23 Status: Ordered gabapentin 300 mg oral capsule 300 mg = 1 cap, Oral, TID, # 90 cap, 0 Refill(s) Start Date: 07/28/23 Status: Ordered hydrOXYzine hydrochloride 50 mg oral tablet PO BID PRN, 0 Refill(s) Start Date: 07/28/23 Status: Ordered metoprolol succinate 50 mg oral capsule, extended release 0 Refill(s) Start Date: 07/28/23 Status: Ordered Problem List Condition Confirmation Course Effective Dates Status H ealth Status Informant ETOH abuse Confirmed Active Alcohol withdrawal Confirmed Active Anxiety Confirmed Active Elevated troponin Confirmed Active Other chest pain Confirmed Active Chronic headache Confirmed Active Depression Confirmed Active Diverticulosis Confirmed Active Nightmare Confirmed Active Leg edema Confirmed Active Essential tremor Confirmed Active Fatigue Confirmed Active Foot joint pain Confirmed Active GI symptoms Confirmed Active Heartburn Confirmed Active Hypertrophic cardiomyopathy Confirmed Active Hyponatremia Confirmed Active Impingement of left ankle joint Confirmed Active Impingement of right ankle joint Confirmed Active Left ankle injury Confirmed Active Left lower quadrant abdominal pain Confirmed Active Loose body of left ankle Confirmed Active Marijuana use Confirmed Active Migraine headache without aura Confirmed Active Polyarthralgia Confirmed Active Myoclonic jerking Confirmed Active 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 Sex Male Patient Care team information Care Team Personnel Name: Marli Stahl Position: No Access Member Role: Primary Care Physician Address: Address: [address] [place] [address]- Care Team Related Persons Name: JOCELYNE HALL
--- NOTE | 2023-08-12 07:45 | DI.US_ITS ---
APPROVED REPORT EXAM: Comprehensive 2D, Doppler, and color-flow Echocardiogram Patient Location: Out-Patient 21 Dealer: Peyman Filed RDCS (AE) Indications: hypertrophic cardiomyopathy Other Information Study Quality: Good Conclusion Normal left ventricular chamber size. There is asymmetric septal hypertrophy. Ejection fraction is 60 to 65%. There are no segmental wall motion abnormalities. There is stage I diastolic dysfunction Normal right ventricular chamber size. The right ventricle is hyperdynamic Both atria are normal in size There is no structural or hemodynamically significant valvular disease Wall motion Left Ventricle The left ventricle is normal size. The left ventricular systolic function is normal. The left ventric ular ejection fraction is within the normal range. Asymmetric septal hypertrophy There is normal LV s egmental wall motion. There is no ventricular septal defect visualized. LVEF is 60 to 65% Right Ventricle The right ventricle is normal size. The right ventricular systolic function is hyperdynamic Unable to assess PA pressure. Atria The left atrium size is normal. The right atrium size is normal. The interatrial septum is intact wit h no evidence for an atrial septal defect. Aortic Valve The aortic valve is normal in structure. Aortic valve is trileaflet. There is no aortic valvular sten osis. No aortic regurgitation is present. Mitral Valve The mitral valve is normal in structure. No evidence of mitral valve stenosis. Mild mitral regurgitat ion. Tricuspid Valve The tricuspid valve is normal in structure. There is no tricuspid valve stenosis. Trace tricuspid reg urgitation. Pulmonic Valve The pulmonary valve is normal in structure. There is no pulmonic valvular stenosis. There is no pulmo jeremy valvular regurgitation. Great Vessels The aortic root is normal in size. The ascending aorta is normal Aortic arch is normal in caliber. IV C is normal in size and collapses >50% with inspiration. Pericardium There is no pericardial effusion. 2D Dimensions IVSD d PLAX 1.70 cm M: 0.6-1.2 Ao Root d 3.49 cm M: 3.1 - 3.7 LVPW d PLAX 1.31 cm M: 0.6 - 1.2 Ao Asc Diam d 3.38 cm M: 2.6 - 3.4 LVID d PLAX 4.98 cm M: 4.2 - 5.8 LVDs 3.48 cm M: 2.5 - 4.0 LV EF Teichholz 57.0 % FS 30.03 % LV EDV (Teich) 117.0 mL LV ESV (Teich) 50.3 mL Stroke Vol Index (Teich) 27.12 M-Mode TAPSE 3.66 cm (M/F) >1.7 Auto EF LV EDV A4C 111.9 mL LV EDV A2C 167.5 mL LV EDV BP 137.2 mL LV ESV A4C 44.4 mL LV ESV A2C 73.5 mL LV ESV BP 57.6 mL LVEF(%) A4C 60.3 % LVEF(%) A2C 56.1 % LVEF(%) BP 58.0 % LV SV A4C 67.5 ml LV SV A2C 94.0 ml LV SV BP 79.6 ml LV CO A4C 3.8 L/min LV CO A2C 5.1 L/min LV CO BP 4.5 L/min HR A4C 56.43 BPM HR A2C 54.22 BPM LV EDV Index (BP) LA Volume LA Length A4C 6.1 cm LA Length A2C LA Area A4C s 16.76 cm2 LA Area A2C s LA Vol A4C A-L 39.07 mL LA Vol A2C A-L LA Vol Biplane A-L LA Vol A4C MOD 37.5 mL LA Vol A2C MOD LA Vol BP MOD RA Volume RA Area A4C 11.7 cm2 RA ESV A4C (A-L) 29.0mL RA Vol/BSA A4C A-L RA Length A4C 4.0 cm RA ESV A4C (MOD) 27.9mL LV Diastology MV E' medial 0.093 (>0.07 m/s) MV E Vmax 0.85 (0.4-1.3 m/s) MV E/E' MED 9.16 (<14) MV A Vmax 0.70 (0.4-1.3 m/s) MV E' lateral 0.116 (>0.1 m/s) E/A Ratio 1.2 MV E/E' LAT 7.29 (<14) MV E' Average 0.104 m/s MV E/E'(average) 8.12 Aortic Valve AoV Vmax 1.56 m/s LVOT Vmax 1.43 m/s AoV Peak Grad 9.8 mmHg LVOT Peak Grad 8.2 mmHg AoV Area (Vmax) 3.49 cm2 LVOT VTI 0.314 m AoV VTI 0.358 m LVOT Mean Grad 4.4 mmHg AoV Mean Dajuan. 1.07 m/s LVOT SV 119.77 mL AoV Mean Grad 5.3 mmHg LVOT Diam s 2.20 cm AoV Area (VTI) 3.35 cm2 Velocity Ratio 0.92 Mitral Valve MV DT 178 (160-240 msec) Pulmonary Valve PV Vmax 1.20 (0.5-1.5 m/s) RVOT Vmax 0.85 m/s PV Peak Grad 5.8 mmHg RVOT Peak Gr. 2.9 mmHg PV Mean Dajuan 0.87 m/s RVOT VTI 0.173 m PV Mean Grad 3.3 mmHg RVOT Mean Gr. 1.6 mmHg
== END ==
PROVIDERS: PCP Nurse Practitioner Family; Visit Provider Internal Medicine Cardiovascular Disease
DX: I42.2 Other hypertrophic cardiomyopathy (principal)
CPT/HCPCS: 93306

== ENCOUNTER 2023-11-18 10:37 | Outpatient (CLI) | payer MEDICAID, SELFPAY ==
--- NOTE | 2023-11-18 10:30 | RT.EKG_ITS ---
APPROVED REPORT Exam: Resting ECG Reason for Exam: CP Patient Location: O HR:58 bpm ECG Measurements Heart Rate 58 AXIS SC 158 P -12 QRSd 105 QRS -73 QT 426 T 5 QTc 419 Conclusion Sinus rhythm...normal P axis, V-rate 50- 99 Left anterior fascicular block...axis(240,-40), init forces inf Borderline low voltage, extremity leads...all extremity leads <0.6mV Consider anterolateral infarct...Q >30mS, I aVL V3-V6,I,aVL Baseline wander in lead(s) V1 No change from prior
== END 2023-11-18 10:38 | disposition home or self-care (01) ==
LOC: DI.CARD 10:38
PROVIDERS: PCP Nurse Practitioner Family; Visit Provider Internal Medicine Cardiovascular Disease
DX: R07.89 Other chest pain (principal)
CPT/HCPCS: 93010

== ENCOUNTER 2024-01-27 10:38 | Emergency (ER) | payer MEDICAID, SELFPAY ==
[2024-01-27 10:40] VITALS: BP 148/95; PULSE 64; RESP 20; TEMP 37.1; O2SAT 98
--- NOTE | 2024-01-27 10:50 | W.ED.GENAD ---
Discharge Plan Disposition Patient Disposition: Home Condition: Improving Discharge Details Clinical Impression: Benzodiazepine dependence Primary Care Provider: Marli Stahl ED Provider: Sanjeev Bradley Home Meds and New Rx's Prescriptions: New chlordiazepoxide HCl 25 mg capsule 25 mg PO ONCE Qty: 21 0RF Rx Instructions: day 1: 50 mg (two tabs) q6hr; day 2: 50 mg q8hr; day 3: 50mg q12hr; day 4: 25mg BID; day 5: 25mg No Action gabapentin 300 mg capsule 300 mg PO TID Rx Instructions: Take 300 mg x three times a day x 3 days then take 300 mg twice a day x 3 days then take 300 mg daily hydroxyzine HCl 50 mg tablet 50 mg PO BID PRN (DME) medical marijuana Qty: 1 Rx Instructions: As directed metoprolol succinate 50 mg tablet extended release 24 hr See Rx Instructions .ROUTE .COMPLEX Qty: 90 3RF Dose Instruction: TAKE ONE TABLET BY MOUTH EVERY DAY Rx Instructions: TAKE ONE TABLET BY MOUTH EVERY DAY clonazepam 1 mg tablet 1 mg PO BID Hold Instructions: pt states PCP won't refill Discharge Instructions Additional Instructions: Please follow with your primary care physician, please seek care by licensed psychiatrist to discuss further outpatient medication use. Please return to the emergency department for any worsening symptoms HPI General Date/Time Provider Initiated Documentation: 01/27/24 10:44. HPI Narrative: 48-year-old male history of anxiety has been on electronic wirer clonazepam 1 mg twice daily for over 3 years, within the last week he endorsed that his primary care doctor stopped prescribing his medication as patient has refused to see a therapist for his anxiety. Patient endorses going without his clonazepam over the last week, endorses jitteriness feeling edgy slightly shaky. Related Data Home Medications Medication Instructions Recorded Confirmed medical marijuana #1 ea 04/30/19 01/27/24 gabapentin 300 mg capsule 300 mg PO TID 03/09/21 01/27/24 hydroxyzine HCl 50 mg tablet 50 mg PO BID PRN 11/13/21 01/27/24 metoprolol succinate 50 mg See Rx Instructions .Route 12/31/22 01/27/24 tablet,extended release 24 hr .COMPLEX #90 tabs clonazepam 1 mg tablet 1 mg PO BID 04/07/23 01/27/24 chlordiazepoxide HCl 25 mg capsule 25 mg PO ONCE #21 caps 01/27/24 Previous Rx's Medication Instructions Recorded metoprolol succinate 50 mg See Rx Instructions .Route 12/31/22 tablet,extended release 24 hr .COMPLEX #90 tabs chlordiazepoxide HCl 25 mg capsule 25 mg PO ONCE #21 caps 01/27/24 Allergies Allergy/AdvReac Type Severity Reaction Status Date / Time bupropion [From Wellbutrin] AdvReac Severe Other (See Verified 01/27/24 10:44 Comment) lamotrigine [From Lamictal] AdvReac Severe Other (See Verified 01/27/24 10:44 Comment) vilazodone [From Viibryd] AdvReac Severe Other (See Verified 01/27/24 10:44 Comment) citalopram AdvReac Intermediate Other (See Verified 01/27/24 10:44 Comment) fluoxetine [From Prozac] AdvReac Intermediate Other (See Verified 01/27/24 10:44 Comment) N ACETYL CYSTEIN AdvReac Severe Other (See Uncoded 01/27/24 10:44 Comment) PRAZOSIN AdvReac Severe Other (See Uncoded 01/27/24 10:44 Comment) BUSPAR AdvReac Intermediate Other (See Uncoded 01/27/24 10:44 Comment) EFFEXOR AdvReac Intermediate Other (See Uncoded 01/27/24 10:44 Comment) General Stated Complaint: RX Refill AYANA: 4 Review of Systems Narrative: Review of Systems Constitutional: Jittery, shaky Eyes: negative ENT: negative Cardiovascular: negative Respiratory: negative Gastrointestinal: negative : negative Musculoskeletal: negative Skin: negative Neurologic: negative Psych: negative Exam Narrative Exam Narrative: Physical Examination General: alert, awake, cooperative, resting comfortably, no acute distress HEENT: normocephalic, atraumatic; PERRL, EOM intact, conjunctiva normal; no nasal discharge; moist mucous membranes, oral and pharyngeal mucosa normal, tolerating secretions; fasciculation Neck: supple, trachea midline; full ROM Chest: normal to inspection Respiratory: normal respiratory effort, speaking in full sentences Cardiac: regular rate, regular rhythm GI: abdomen soft, non-tender, non-distended; no palpable mass or hepatosplenomegaly Skin: no lesions, rashes or trauma appreciated Neuro: AAOx3, normal speech, moving all extremities; interactive full range of motion full-strength ambulatory without ataxia, no tremor Psych: Appropriate mood and affect Course Vital Signs Vital signs: Vital Signs Temperature 37.1 C 01/27/24 10:40 Pulse 64 01/27/24 10:40 Respiratory Rate 20 01/27/24 10:40 Blood Pressure 148/95 H 01/27/24 10:40 Pulse Oximetry 98 01/27/24 10:40 Temperature 37.1 C 01/27/24 10:40 Temperature Source Skin 01/27/24 10:40 Pulse 64 01/27/24 10:40 Respiratory Rate 20 01/27/24 10:40 Respiratory Effort Normal, Non-Labored 01/27/24 10:43 Blood Pressure 148/95 H 01/27/24 10:40 Blood Pressure Position Sitting 01/27/24 10:40 Pulse Oximetry 98 01/27/24 10:40 Oxygen Delivery Method Room Air 01/27/24 10:40 Oxygen Flow Rate 0 01/27/24 10:40 Pain Level 0 01/27/24 10:40 Medical Decision Making 48-year-old male history of daily clonazepam use over the last 3 years was recently cut off by his primary care physician as patient does not want to go to therapy, PCP per patient is refused to fill his clonazepam prescription, has been without his meds for approximately 1 week. Feeling jittery and edgy. Calm cooperative interactive. Neurologically intact no fasciculations no tremors. No tachycardia no diaphoresis. Will administer dose of Librium and prescribe Librium taper to safely wean systemic benzo. No evidence of active withdrawal currently. Counseled patient extensively that he needs to find a provider such as a primary care physician or psychiatrist to coordinate further outpatient meds. Quality:SDOH Health Related Social Needs: No Data to Display PFSH All Active Problems (Updated 01/27/24 @ 10:54 by Sanjeev Bradley MD) Benzodiazepine dependence (Acute) TBI (traumatic brain injury) (Acute) Migraine headache without aura (Acute) Chronic headache (Acute) Myoclonic jerking (Acute) Essential tremor (Acute) Shoulder pain (Acute) Foot joint pain (Acute) Skin lesion (Acute) Leg edema (Acute) Heartburn (Acute) Plantar fasciitis (Acute) Superficial thrombophlebitis (Acute) Family history of malignant neoplasm of skin (Acute) Tinea corporis (Acute) Knee pain (Acute) GI symptom (Acute) Hyponatremia (Acute) Fatigue (Acute) Vitamin D deficiency (Acute) Palpitations (Acute) Other chest pain (Acute) Hypertrophic cardiomyopathy (Acute) Alcohol withdrawal (Acute) Elevated troponin (Acute) Impingement of right ankle joint (Acute) Right peroneal tendonosis (Acute) Loose body of left ankle (Acute) Degenerative joint disease of left ankle (Acute) Impingement of left ankle joint (Acute) Left ankle injury (Acute 01/19/20) Diverticulosis (Acute) Left lower quadrant abdominal pain (Acute) Nightmares (Acute) Sebaceous cyst (Acute) ETOH abuse (Chronic) Suicidal ideation (Acute) Marijuana use (Acute) Polyarthralgia (Acute) PTSD (post-traumatic stress disorder) (Acute) Medical History Depression Anxiety History of tobacco abuse Dental abscess Surgical History S/P ankle arthrodesis Left S/P hemorrhoidectomy (~06/15/19) banding x3 S/P colonoscopy (~06/15/19) History of surgery exc. cyst removed Family History Father Skin cancer Cardiomyopathy Hypertension Maternal Uncle Colon cancer Mother Acid reflux disease with ulcer Hypertension Sister Breast cancer Other Heart disease Social History Smoking/Tobacco Use Status: Former Tobacco Use Smoking risk assessment performed?: Yes Alcohol Intake: former Year quit: 2019 Drug use: Daily Substance use type: marijuana Details: Uses Marijuana for pain, anxiety. 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 Do you feel safe at home: Yes Do you feel safe in your relationship?: Yes
[2024-01-27] MEDS: chlordiazePOXIDE 25 MG CAP PO (10:53)
== END 2024-01-27 11:16 | disposition home or self-care (01) ==
PROVIDERS: Emergency Provider Emergency Medicine; PCP Nurse Practitioner Family
DX: F13.20 Sedative, hypnotic or anxiolytic dependence, uncomplicated (principal); F41.9 Anxiety disorder, unspecified; Z87.891 Personal history of nicotine dependence
CPT/HCPCS: 99283

== ENCOUNTER 2024-02-16 10:52 | Emergency (ER) | payer MEDICAID, SELFPAY ==
[2024-02-16 10:56] VITALS: BP 127/87; PULSE 60; RESP 14; TEMP 36.9; O2SAT 97
--- NOTE | 2024-02-16 11:21 | W.ED.GENAD ---
Discharge Plan Disposition Patient Disposition: Home Condition: Good Discharge Details Clinical Impression: Anxiety Primary Care Provider: Marli Stahl ED Provider: Terry Vail Home Meds and New Rx's Prescriptions: No Action gabapentin 300 mg capsule 300 mg PO TID Rx Instructions: Take 300 mg x three times a day x 3 days then take 300 mg twice a day x 3 days then take 300 mg daily hydroxyzine HCl 50 mg tablet 50 mg PO BID PRN (DME) medical marijuana Qty: 1 Rx Instructions: As directed metoprolol succinate 50 mg tablet extended release 24 hr See Rx Instructions .ROUTE .COMPLEX Qty: 90 3RF Dose Instruction: TAKE ONE TABLET BY MOUTH EVERY DAY Rx Instructions: TAKE ONE TABLET BY MOUTH EVERY DAY clonazepam 1 mg tablet 1 mg PO BID Hold Instructions: pt states PCP won't refill colchicine 0.6 mg tablet 1.2 mg PO DAILY PRN Patient Comments: TAKE TWO TABLETS BY MOUTH ON DAY ONE OF TREATMENT, SOON POSSIBLE WITH ONSET OF GOUT FLARE, THEN TAKE ONE TABLET ONE HOUR LATER. BEGINN Discharge Instructions Instructions: Anxiety (ED) Additional Instructions: You were seen in the emergency department for anxiety. Certainly recently starting her clonazepam could be contributing to this but you are out of the period of dangerous withdrawal from clonazepam and at this time I would recommend you follow-up with your primary care doctor. You can consider other medications to treat your anxiety with your primary care doctor. If you develop worsening symptoms you can certainly return here to the emergency department. I am giving you the number for the [facility] services who will likely be able to provide you additional help as well. Please return here if you have any other concerns. Referrals: [facility] [Outside] - 2 days Marli Stahl [Primary Care Provider] - 5 days HPI General Date/Time Provider Initiated Documentation: 02/16/24 11:04. HPI Narrative: This is a 48-year-old male previous history of alcohol use disorder now in remission and more recently chronically on clonazepam presents with anxiety. Apparently his primary care doctor stopped the clonazepam that he was on for about 3 years. He came to the ER on 01/27/2024. Was given a 5-day taper of Librium. Has not had any other benzodiazepines. Still not drinking alcohol. He has now gone a full 2 weeks without any benzodiazepines. Still waking up in the morning anxious. No nausea or vomiting. No tremulousness or shakiness. Still using the bathroom normally. He is feeling very anxious in the mornings and this gets better throughout the day. He denies any suicidal ideation or thoughts of hurting himself. No homicidal ideation or thoughts of hurting anyone else. No hallucinations or delusions. Said he has been dealing with this anxiety and that is why he used to take the clonazepam. Says he has seen a psychiatrist in the past. Says he has seen a therapist in the past and said neither of these interventions work. He denies any drug use other than marijuana use occasionally. Related Data Home Medications Medication Instructions Recorded Confirmed medical marijuana #1 ea 04/30/19 02/16/24 gabapentin 300 mg capsule 300 mg PO TID 03/09/21 02/16/24 hydroxyzine HCl 50 mg tablet 50 mg PO BID PRN 11/13/21 02/16/24 metoprolol succinate 50 mg See Rx Instructions .Route 12/31/22 02/16/24 tablet,extended release 24 hr .COMPLEX #90 tabs clonazepam 1 mg tablet 1 mg PO BID 04/07/23 02/16/24 colchicine 0.6 mg tablet 1.2 mg PO DAILY PRN 02/16/24 02/16/24 Previous Rx's Medication Instructions Recorded metoprolol succinate 50 mg See Rx Instructions .Route 12/31/22 tablet,extended release 24 hr .COMPLEX #90 tabs Allergies Allergy/AdvReac Type Severity Reaction Status Date / Time bupropion [From Wellbutrin] AdvReac Severe Other (See Verified 02/16/24 11:00 Comment) lamotrigine [From Lamictal] AdvReac Severe Other (See Verified 02/16/24 11:00 Comment) vilazodone [From Viibryd] AdvReac Severe Other (See Verified 02/16/24 11:00 Comment) citalopram AdvReac Intermediate Other (See Verified 02/16/24 11:00 Comment) fluoxetine [From Prozac] AdvReac Intermediate Other (See Verified 02/16/24 11:00 Comment) N ACETYL CYSTEIN AdvReac Severe Other (See Uncoded 02/16/24 11:00 Comment) PRAZOSIN AdvReac Severe Other (See Uncoded 02/16/24 11:00 Comment) BUSPAR AdvReac Intermediate Other (See Uncoded 02/16/24 11:00 Comment) EFFEXOR AdvReac Intermediate Other (See Uncoded 02/16/24 11:00 Comment) General Stated Complaint: DrugWithdr/MAT AYANA: 3 Review of Systems Constitutional Constitutional: Denies chills, Denies fever(s) and Denies headache(s) Eyes Eyes: Denies change in vision ENT Ears, Nose, Mouth, and Throat: Denies headache(s) and Denies odynophagia Cardiovascular Cardiovascular: Denies chest pain and Denies dyspnea Respiratory Respiratory: Denies dyspnea Gastrointestinal Gastrointestinal: Denies abdominal pain, Denies diarrhea, Denies nausea, Denies odynophagia and Denies vomiting Genitourinary Genitourinary: Denies dysuria Musculoskeletal Musculoskeletal: Denies myalgias Integumentary/Breasts Skin/Breast: Denies changing lesions Neurologic Neurologic: Denies headache(s) Psychiatric Psychiatric: Reports anxiety, Denies visual hallucinations, Denies hallucinations, Denies tactile hallucinations, Denies homicidal ideation and Denies suicidal ideation Endocrine Endocrine: Denies heat intolerance Hematologic/Lymphatic Hematologic/Lymphatic: Denies lymphadenopathy Exam Const General: cooperative Nutritional Appearance: average body habitus Orientation: alert, awake and oriented x3 HENMT Head: normal to inspection Ears: external ears normal Mouth: moist mucous membranes Eyes Pupils: PERRL EOM: EOM intact bilaterally and No nystagmus Neck Neck: full ROM and no tracheal deviation Chest Chest: normal inspection of the chest Resp Auscultation: clear to auscultation bilaterally Cardio Rate: regular rate Rhythm: regular rhythm GI Inspection: normal to inspection Palpation: soft, no guarding, not rigid and nontender Back/Spine/Pelvis Back: No no CVA tenderness Thoracic/Lumbar Spine: thoracic and lumbar spine normal to inspection Skin General skin exam: no rashes or lesions noted Neuro General: patient alert, patient awake and patient oriented x3 Cranial Nerves: CN's II-XI intact bilaterally, PERRL and no nystagmus Cognition: normal cognition Motor: muscle tone normal throughout and strength 5/5 throughout Sensory Exam: no sensory deficits noted Other: No tongue fasciculations and no tremulousness. Coordination is normal with strong gait. Extrem General: normal to inspection Course Vital Signs Vital signs: Vital Signs Temperature 36.9 C 06/03/24 10:56 Pulse 60 02/16/24 10:56 Respiratory Rate 14 02/16/24 10:56 Blood Pressure 127/87 02/16/24 10:56 Pulse Oximetry 97 02/16/24 10:56 Temperature 36.9 C 02/16/24 10:56 Temperature Source Oral 02/16/24 10:56 Pulse 60 02/16/24 10:56 Respiratory Rate 14 02/16/24 10:56 Blood Pressure 127/87 02/16/24 10:56 Blood Pressure Position Sitting 02/16/24 10:56 Pulse Oximetry 97 02/16/24 10:56 Oxygen Delivery Method Room Air 02/16/24 10:56 Oxygen Flow Rate 0 02/16/24 10:56 Medical Decision Making This is a 48-year-old male who presents with anxiety. He was just given a Librium taper. He has been off this for 2 weeks. He is not exhibiting signs of benzodiazepine withdrawal other than the sensation of anxiety and he does not have any vital sign abnormalities, tremulousness, sweatiness to suggest this diagnosis. I think it is unlikely that he is going to exhibit severe benzodiazepine withdrawal at this time and will not give another taper or other prescription for benzodiazepine presently. I offered to let him speak with [facility] here but he said he can call them on his own. He does not have suicidal or homicidal thoughts or hallucinations or delusions so I think that this is reasonable. Says he has not been drinking alcohol also no concern that this represents alcohol withdrawal. Offered to start him on other medications to treat his anxiety but he would like to follow-up with his primary or the [facility] team. Will discharge with return precautions. Quality:[facility] Health Related Social Needs: No Data to Display [facility] All Active Problems Anxiety (Chronic) Benzodiazepine dependence (Acute) TBI (traumatic brain injury) (Acute) Migraine headache without aura (Acute) Chronic headache (Acute) Myoclonic jerking (Acute) Essential tremor (Acute) Shoulder pain (Acute) Foot joint pain (Acute) Skin lesion (Acute) Leg edema (Acute) Heartburn (Acute) Plantar fasciitis (Acute) Superficial thrombophlebitis (Acute) Family history of malignant neoplasm of skin (Acute) Tinea corporis (Acute) Knee pain (Acute) GI symptom (Acute) Hyponatremia (Acute) Fatigue (Acute) Vitamin D deficiency (Acute) Palpitations (Acute) Other chest pain (Acute) Hypertrophic cardiomyopathy (Acute) Alcohol withdrawal (Acute) Elevated troponin (Acute) Impingement of right ankle joint (Acute) Right peroneal tendonosis (Acute) Loose body of left ankle (Acute) Degenerative joint disease of left ankle (Acute) Impingement of left ankle joint (Acute) Left ankle injury (Acute 01/19/20) Diverticulosis (Acute) Left lower quadrant abdominal pain (Acute) Nightmares (Acute) Sebaceous cyst (Acute) ETOH abuse (Chronic) Suicidal ideation (Acute) Marijuana use (Acute) Polyarthralgia (Acute) PTSD (post-traumatic stress disorder) (Acute) Medical History Depression Anxiety History of tobacco abuse Dental abscess Surgical History S/P ankle arthrodesis Left S/P hemorrhoidectomy (~06/15/19) banding x3 S/P colonoscopy (~06/15/19) History of surgery exc. cyst removed Family History Father Skin cancer Cardiomyopathy Hypertension Maternal Uncle Colon cancer Mother Acid reflux disease with ulcer Hypertension Sister Breast cancer Other Heart disease Social History Smoking/Tobacco Use Status: Former Tobacco Use Smoking risk assessment performed?: Yes Alcohol Intake: former Year quit: 2019 Drug use: Daily Substance use type: marijuana Details: Uses Marijuana for pain, anxiety. 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 Do you feel safe at home: Yes Do you feel safe in your relationship?: Yes
--- NOTE | 2024-02-16 13:06 | NUR.NOTE ---
Nursing Note: Received call from patient who had difficulty understanding his discharge paperwork. Verbal instructions given and pt became aggitated and angry. Pt stated that he can't get into his PCP office for 5 days and You are a failure and then hung up. Call placed to pt PCP office [facility] and spoke w/Nurse. Nurse states pt has refused to come into his prior appointments and that he has been in touch with them as well this AM. Pt has an appt scheduled for and they are aware of his current situation. Pt has hydroxyzine 180 capsules that he last filled 02/04/24 and was instructed to utilize that PRN for his anxiety. Protocols are in place at PCP office for his medication management due to previous dependency on benzodiazepines.
== END 2024-02-16 11:34 | disposition home or self-care (01) ==
PROVIDERS: Emergency Provider Student in an Organized Health Care Education/Training Program; PCP Nurse Practitioner Family
DX: F41.9 Anxiety disorder, unspecified (principal); F10.91 Alcohol use, unspecified, in remission
CPT/HCPCS: 99281; 99282

== ENCOUNTER 2025-09-05 13:02 | Outpatient (REF) | payer MEDICAID, SELFPAY ==
[2025-09-05 16:37] LABS: Vitamin D 25 Total 21 ng/mL (30-100)
[2025-09-05 16:43] LABS: ALT 23 U/L (10-49); AST 20 U/L (<34); Albumin 4.5 g/dL (3.2-5.0); Alkaline Phosphatase 63 U/L (46-116); Anion Gap 10.6 mmol/L (3-11); BUN 11 mg/dL (9-23); Bilirubin, Total 0.5 mg/dL (0.2-1.2); CO2 28.4 mmol/L (20.0-31.0); Calcium 9.5 mg/dL (8.3-10.6); Chloride 106 mmol/L (98-107); Cholesterol 186 mg/dL (<200); Glucose 112 mg/dL (74-106); HDL Cholesterol 44 mg/dL (>or=40); Potassium 3.7 mmol/L (3.5-5.1); Sodium 145 mmol/L (136-145); Total Protein 6.9 g/dL (5.7-8.2)
[2025-09-06 19:50] LABS: HIV-1/2 Ag & Ab Screen Negative (Negative)
[2025-09-06 19:55] LABS: Hepatitis C Ab w Rflx HCV PCR Negative (Negative)
== END 2025-09-05 13:03 | disposition home or self-care (01) ==
LOC: NCHCN 13:02
PROVIDERS: PCP Nurse Practitioner Family; Visit Provider Nurse Practitioner Family
DX: Z00.00 Encounter for general adult medical examination without abnormal findings (principal)
CPT/HCPCS: 80053; 80061; 82306; 86803; 87389